=== PATIENT | female | born 1950 | race Caucasian/White ===

== ENCOUNTER 2017-06-23 14:24 | Inpatient (IN) | payer OTHER ==
[~2017-06-23] VITALS: Ht 177.8 cm; Wt 100.3 kg
--- NOTE | 2017-06-23 14:41 | ED GI/GU/ABDOMINAL COMPLAINT ---
History of Present Illness General Chief Complaint: Abdominal Pain/Flank Pain Stated Complaint: BIBA FOR FLANK PAIN Source: patient, family Exam Limitations: no limitations Allergies Coded Allergies: NO KNOWN ALLERGIES (12/08/15) Reconcile Medications Biotin 5,000 MCG TAB.SUBL 1 TAB PO DAILY SUPPLEMENT (Reported) Cholecalciferol (Vitamin D3) (Vitamin D3) 10,000 UNIT TABLET 1 TAB PO DAILY VITAMIN SUPPORT (Reported) Cyanocobalamin (Vitamin B-12) (Vitamin B-12) 1,000 MCG TAB.SUBL 1 TAB PO DAILY VITAMIN SUPPORT (Reported) Gabapentin 400 MG CAPSULE 1 CAP PO TID PAIN (Reported) Lactobacillus Combo No.10 (Probiotic) 20 BILLION CELL CAPSULE 1 CAP PO DAILY GI (Reported) Lisinopril 10 MG TABLET 1 TAB PO DAILY HEART (Reported) Multivitamin (Daily Multiple Vitamin) 1 EACH TABLET 1 TAB PO DAILY VITAMIN SUPPORT (Reported) Vitamin A Palmitate (Vitamin A) 10,000 UNIT CAPSULE 1 CAP PO DAILY VITAMIN SUPPORT (Reported) Zolpidem Tartrate 10 MG TABLET 1 TAB PO QPM SLEEP (Reported) Triage Note: PT BIBA FROM HOME S/P 4 DAY HX OF PAIN ABOVE RIGHT HIP. AREA IS HARD AND VERY TENDER TO TOUCH. PAIN ALSO ACOMPANIED BY SOB. 2L ON FOR COMFORT. Triage Nurses Notes Reviewed? yes ? n Is pt currently ? No Onset: Gradual Duration: day(s): Timing: recent history Quality/Severity: moderate Severity Numbers: 8 Location: right flank Radiation: no radiation HPI: 66yo female with hx of HTN BIBA for abdominal x 4 days. Patient reports right flank pain which has been constant for 4 days described as 8/10, worse with pressure and certain movements. Patient has had no history of a similar pain in this location. Pain has no radiation. Patient states that she takes Ambien at night, this medication often causes her to have forgetfulness. Patient states that it is possible she could've fallen and not been aware of that. No other areas suspected of injury. LBM was 2 hours ago and vicente. Patient is tolerating PO however reports diminished appetite. Patient denies nausea, vomiting, diarrhea, conspitation, fevers, chills, urinary symptoms. (Staci HUANG,Savi Boggs) Vital Signs & Intake/Output Vital Signs & Intake/Output Vital Signs Date Time Temp Pulse Resp B/P B/P Pulse O2 O2 Flow FiO2 Mean Ox Delivery Rate 06/23 2014 98.0 90 20 158/72 97 Room Air 06/23 1759 98.5 85 20 180/84 97 Room Air 06/23 1523 Nasal 2.0L Cannula 06/23 1433 98.2 98 22 162/79 98 Nasal 2.0L Cannula (Sandra NEWTON,Jamin Glez) Past History Travel History Traveled to [place] past 21 day No Medical History Any Pertinent Medical History? see below for history Cardiovascular: hypertension Surgical History Surgical History: cholecystectomy, gastric bypass Psychosocial History Who do you live with Spouse Services at Home None What is your primary language Fijian Family History Hx Contributory? No (Savi Rosas) Review of Systems Review of Systems Constitutional: Reports: no symptoms. EENTM: Reports: no symptoms. Respiratory: Reports: no symptoms. Cardiovascular: Reports: no symptoms. GI: Reports: see HPI. Genitourinary: Reports: no symptoms. Musculoskeletal: Reports: no symptoms. Skin: Reports: no symptoms. Neurological/Psychological: Reports: no symptoms. Hematologic/Endocrine: Reports: no symptoms. Immunologic/Allergic: Reports: no symptoms. All Other Systems: Reviewed and Negative (Savi Rosas) Physical Exam Physical Exam General Appearance: well developed/nourished, no apparent distress, alert, awake Head: atraumatic, normal appearance Eyes: Bilateral: normal appearance. Ears, Nose, Throat, Mouth: hearing grossly normal Neck: normal inspection, supple, full range of motion Respiratory: normal breath sounds, no respiratory distress, lungs clear Cardiovascular: regular rate/rhythm Gastrointestinal: normal bowel sounds, right flank tenderness with area of focal firmness to abodmen, no skin changes Back: normal inspection, normal range of motion Extremities: normal range of motion Neurologic/Psych: awake, alert, oriented x 3 Skin: intact, normal color, warm/dry Core Measures ACS in differential dx? No Sepsis Present: No Sepsis Focused Exam Completed? No (Savi Rosas) Progress Differential Diagnosis: appendicitis, bowel obstruction, colon cancer, inflamm bowel dis, kidney stone, ovarian cyst, UTI/pyelo, abscess Diagnostic Imaging: Viewed by Me: CT Scan. Discussed w/RAD: CT Scan. Radiology Impression: PATIENT: DINORAH LÓPEZ PRESENT AGE: 66 PATIENT ACCOUNT NO: [id number] : 48 LOCATION: [facility] ORDERING PHYSICIAN: Savi HUANG SERVICE DATE: 06/23/177893 EXAM TYPE: CAT - CT ABD & PELVIS W IV CONTRAST EXAMINATION: CT ABDOMEN AND PELVIS WITH CONTRAST CLINICAL INFORMATION: Right flank tenderness and firmness. COMPARISON: None TECHNIQUE: Multidetector volumetric imaging was performed of the abdomen and pelvis following IV administration of 95 mL of Optiray 320 intravenous contrast. Sagittal and coronal reformatted images were obtained on the technologist's workstation. DLP: 1635.21 mGy-cm FINDINGS: LUNG BASES: There is a minimal dependent right pleural effusion. LIVER, GALLBLADDER, AND BILIARY TREE: Status post cholecystectomy with surgical clips at the gallbladder fossa. There is both intrahepatic and extrahepatic bile duct dilatation. The extrahepatic CBD measures 1.6 cm. The intrahepatic left biliary radicle is dilated. There is a 5 mm stone in the distal CBD proximal to the ampulla, coronal image 68. PANCREAS: The pancreas is atrophic. There is no inflammation of the pancreas. There is no pancreatic duct dilatation. SPLEEN: Unremarkable. ADRENAL GLANDS: Unremarkable. KIDNEYS AND URETERS: The kidneys are normal in size, shape, and attenuation. No hydronephrosis, hydroureter, or calculi seen. No perinephric stranding. BLADDER: Unremarkable. GASTROINTESTINAL TRACT: There is diverticulosis of the left colon. No diverticulitis. No acute change of the bowel. No bowel obstruction. No bowel wall thickening or edema. Moderate volume of stool in the colon. The appendix is normal. Patient has had prior gastric surgery, gastric bypass. Anastomosis of the stomach and small bowel are unremarkable. ABDOMINAL WALL: There is a complex fluid collection along the right flank. This extends from the posterior right upper lobe posterior to the right lobe of the liver at the diaphragm and extends caudally along the infrahepatic area and involves the right flank muscle. It appears to extend through the right flank muscle inferiorly to the ribs. This collection measures approximately 20 x 5 x 10 cm. This has septations within it and there is subtle edema around the collection particularly at the extension through the abdominal wall. There is a fat-containing umbilical hernia. LYMPH NODES: Normal. VASCULAR: Atherosclerotic vascular wall calcifications of the aorta and iliac arteries without aneurysm. PELVIC VISCERA: Uterus is absent. No adnexal abnormality. OSSEOUS STRUCTURES: Degenerative spondylosis of spine with multilevel bridging osteophytes and facet joint arthrosis and disc-height narrowing of thoracic and lumbar spine. There is degenerative change of the hip joints with joint narrowing and spurring of femoral head and acetabula, right worse than left. IMPRESSION: 1. Complex collection consistent with abscess along the right flank. 2. Status post cholecystectomy. Dilated bile ducts. A 5 mm calcified stone in the distal CBD. 3. Status post gastric bypass. 4. Diverticulosis of the colon. No acute change of the bowel. This critical result was discussed with Savi Small on 06/23/2017, 5:00 PM and it was ascertained that the content and urgency of the report was understood at the time of direct communication. DICTATED BY: Nilesh Pagan MD DATE/TIME DICTATED:1647 BINDER SELECTOR:JG DATE/TIME TRANSCRIBED:06/23/171647 CONFIDENTIAL, DO NOT COPY WITHOUT APPROPRIATE AUTHORIZATION. <Electronically signed in Other Vendor System> SIGNED BY: Nilesh Pagan MD 06/23/17 6777 Initial ED EKG: sinus rhythm @89bpm, nonspecific ST changes Prior EKG: unchanged (05/12/11) (Savi Rosas) Plan of Care: Orders Procedure Date/time Status Nothing by Mouth 06/24 B Active PROTHROMBIN TIME 06/24 06 Active CBC WITHOUT DIFFERENTIAL 06/24 06 Active Pathway - chart 06/23 2002 Active Patient Data 06/23 2002 Active Vital Signs 06/23 2002 Active Intake & Output 06/23 2002 Active PARTIAL THROMBOPLASTIN TIME 06/23 2002 Active LIPASE 06/23 2002 Active HEPATIC FUNCTION PANEL 06/23 2002 Active BASIC ELECTROLYTES PLUS BUN&CR 06/23 2002 Active Code Status 06/23 2002 Active OXYGEN SETUP (GEN) 06/24 1999 Active Saline Lock 06/24 1999 Active Admit to inpatient 06/24 1999 Active Vital Signs 06/24 1999 Active Activity/Ambulation 06/24 1999 Active Code Status 06/24 1999 Complete EKG 06/23 1903 Active BLOOD CULTURE 06/23 1716 Active C-REACTIVE PROTEIN 06/23 1450 Complete URINALYSIS 06/23 1440 Complete LIPASE 06/23 1439 Complete LACTIC ACID 06/23 1439 Complete HIGH SENSITIVITY CRP 06/23 1439 Complete COMPREHENSIVE METABOLIC PANEL 06/23 1439 Complete CBC WITHOUT DIFFERENTIAL 06/23 1439 Complete VTE Mechanical Prophylaxis 06/23 UNK Active Current Medications Sig/Gunner Start time Last Medication Dose Stop Time Status Admin Ampicillin Sodium/ 3,000 MG Q6 06/23 2359 UNVr Sulbactam Sodium (Unasyn) Sodium Chloride 100 ML (Normal Saline 0.9%) Heparin Sodium 5,000 UNIT Q8 06/23 2200 UNVr (Porcine) Pantoprazole Sodium 40 MG Q12 06/23 2100 UNVr (Protonix) Dextrose/Sodium 1,000 ML Q10H 06/23 2000 UNVr Chloride (D5W-1/2 Normal Saline 1000ML) Laboratory Tests 06/23/17 1739: Lactic Acid Cancelled 06/23/17 1720: Urinalysis LIGHT H, Urine Color YEL, Urine Clarity CLEAR, Urine pH 7.0, Ur Specific [place] <= 1.005, Urine Protein NEG, Urine Ketones 15 H, Urine Nitrite NEG, Urine Bilirubin NEG, Urine Urobilinogen 2.0 H, Ur Leukocyte Esterase TRACE H, Ur Microscopic SEDIMENT EXAMINED, Urine WBC 1-3 H, Ur Epithelial Cells FEW, Urine Bacteria FEW H, Urine Hemoglobin NEG, Urine Glucose NEG 06/23/17 1450: Anion Gap 14, Estimated GFR > 60, BUN/Creatinine Ratio 23.3, Glucose 156 H, Lactic Acid 1.1, Calcium 9.5, Total Bilirubin 0.7, AST 72 H, ALT 75 H, Alkaline Phosphatase 252 H, C-Reactive Prot, Quant > 9.0 H, C-React Prot High Sens > 15.0 H, Total Protein 6.6, Albumin 3.3 L, Globulin 3.3, Albumin/ Globulin Ratio 1.0 L, Lipase 21 L, CBC w Diff MAN DIFF ORDERED, RBC 4.03 L, MCV 88.7, MCH 28.8, MCHC 32.5 L, RDW 13.5, MPV 7.6, Gran % 92.9 H, Lymphocytes % 5.4 L, Monocytes % 1.6 L, Eosinophils % 0.1, Basophils % 0, Absolute Granulocytes 10.9 H, Segmented Neutrophils 89 H, Band Neutrophils 2, Absolute Lymphocytes 0.6 L, Lymphocytes 5 L, Monocytes 4, Absolute Monocytes 0.2, Absolute Eosinophils 0, Absolute Basophils 0, Platelet Estimate VERIFIED BY SMEAR, Anisocytosis 1+ Microbiology 06/23 1750 BLOOD: Blood Culture - RECD 06/23 1734 BLOOD: Blood Culture - RECD Spoke with radiology regarding this patient - 5mm stone in distal CBD large abscess posterior to liver invading into right flank muscle, 20cm long, cause is unknown. Small right pleural effusion. Spoke with Dr. Blakely regarding this patient and abnormal CT scan findings. Surgical PA present to evaluate the patient. Given abscess and CBD stone they recommend general medicine admission for GI consult and IR abscess drainage. Spoke with Dr. Welch - possible MRCP. only requires ERCP if patient developes cholangitis. Dr. Welch does not feel she has cholangitis at this time and feels she can remain here at [place]. He will consult the patient tomorrow unless she requires urgent consult later tonight. Hospitalist, Dr. Fam recommends general surgery admission and she will consult from hospitalist standpoint. (Staci HUANG,Savi Boggs) (Sandra NEWTON,Jamin Glez) Departure Departure Disposition: STILL A PATIENT Condition: Stable Clinical Impression Primary Impression: Abscess of flank Secondary Impressions: Abdominal pain Qualifiers: Abdominal location: unspecified location Qualified Code: R10.9 - Unspecified abdominal pain Common bile duct stone Referrals: Juan Antonio NEWTON,Chepe Jasso Departure Forms: Customer Survey General Discharge Information Admission Note Spoke With: Darrick Oscar DO Documentation of Exam: Documentation of any treatments & extenuating circumstances including Concerns Regarding Discharge (functional status, medication knowledge or non-compliance, living conditions, etc.) that warrant an admission rather than observation: [ Abdominal wall abscess requiring IR drainage, gallstone requiring GI consult, possible MRCP/ERCP, repeat labs, IV fluids, IV pain management, premature discharge medically unsafe] (Staci HUANG,Savi Boggs) PA/GILL TENDER Co-Sign Statement Statement: ED Attending supervision documentation- [x] I saw and evaluated the patient. I have also reviewed all the pertinent lab results and diagnostic results. I agree with the findings and the plan of care as documented in the PA's/GILL TENDER's documentation. Patient presents for evaluation of right flank and abdominal pain. Physical examination reveals tenderness over the right abdomen. [] I have reviewed the ED Record and agree with the PA's/GILL TENDER's documentation. [] Additions or exceptions (if any) to the PAs/GILL TENDER's note and plan are summarized below: [] (Sandra NEWTON,Jamin Glez)
[2017-06-23 14:58] LABS: ABSOLUTE BASOPHIL COUNT 0 /CUMM (0.0-0.2); ABSOLUTE EOSINOPHIL COUNT 0 /CUMM (0.0-0.7); ABSOLUTE GRANULOCYTE CT 10.9 /CUMM (1.4-6.5); ABSOLUTE LYMPH COUNT 0.6 /CUMM (1.2-3.4); ABSOLUTE MONOCYTE COUNT 0.2 /CUMM (0.10-0.60); BASOPHIL % 0 % (0.0-2.0); EOSINOPHIL % 0.1 % (0-5); GRANULOCYTE % 92.9 % (42.2-75.2); HEMATOCRIT 35.8 % (37-47); MEAN CORPUSCULAR HGB 28.8 PG (27.0-31.0); MEAN CORPUSCULAR HGB CONC 32.5 G/DL (33.0-37.0); MEAN CORPUSCULAR VOLUME 88.7 FL (81.0-99.0); MEAN PLATELET VOLUME 7.6 FL (7.4-10.4); PLATELET COUNT 484 /CUMM (130-400); RBC DISTRIBUTION WIDTH 13.5 % (11.5-14.5); RED BLOOD CELL CT 4.03 /CUMM (4.20-5.40); WHITE BLOOD CELL COUNT 11.7 /CUMM (4.8-10.8)
[2017-06-23] MEDS ORDERED: DAILY MULTIPLE1 EACH PO (15:04)
[2017-06-23] MEDS ORDERED: BIOTIN5000 MC1 PO (15:05)
[2017-06-23] MEDS ORDERED: VITAMIN A10000 UNI1 PO (15:06)
[2017-06-23] MEDS ORDERED: PROBIOTIC1 EAC2 PO (15:07)
[2017-06-23] MEDS ORDERED: VITAMIN D310000 UNIT PO (15:08)
[2017-06-23] MEDS ORDERED: LISINOPRIL10 M1 PO (15:09)
[2017-06-23] MEDS ORDERED: VITAMIN B-121000 MC2 PO (15:09)
[2017-06-23] MEDS ORDERED: ZOLPIDEM TARTRA10 M1 PO (15:10)
[2017-06-23] MEDS ORDERED: GABAPENTIN400 M2 PO (15:10)
--- NOTE | 2017-06-23 17:27 | CT SCAN REPORT ---
EXAMINATION: CT ABDOMEN AND PELVIS WITH CONTRAST CLINICAL INFORMATION: Right flank tenderness and firmness. COMPARISON: None TECHNIQUE: Multidetector volumetric imaging was performed of the abdomen and pelvis following IV administration of 95 mL of Optiray 320 intravenous contrast. Sagittal and coronal reformatted images were obtained on the technologist's workstation. DLP: 1635.21 mGy-cm FINDINGS: LUNG BASES: There is a minimal dependent right pleural effusion. LIVER, GALLBLADDER, AND BILIARY TREE: Status post cholecystectomy with surgical clips at the gallbladder fossa. There is both intrahepatic and extrahepatic bile duct dilatation. The extrahepatic CBD measures 1.6 cm. The intrahepatic left biliary radicle is dilated. There is a 5 mm stone in the distal CBD proximal to the ampulla, coronal image 68. PANCREAS: The pancreas is atrophic. There is no inflammation of the pancreas. There is no pancreatic duct dilatation. SPLEEN: Unremarkable. ADRENAL GLANDS: Unremarkable. KIDNEYS AND URETERS: The kidneys are normal in size, shape, and attenuation. No hydronephrosis, hydroureter, or calculi seen. No perinephric stranding. BLADDER: Unremarkable. GASTROINTESTINAL TRACT: There is diverticulosis of the left colon. No diverticulitis. No acute change of the bowel. No bowel obstruction. No bowel wall thickening or edema. Moderate volume of stool in the colon. The appendix is normal. Patient has had prior gastric surgery, gastric bypass. Anastomosis of the stomach and small bowel are unremarkable. ABDOMINAL WALL: There is a complex fluid collection along the right flank. This extends from the posterior right upper lobe posterior to the right lobe of the liver at the diaphragm and extends caudally along the infrahepatic area and involves the right flank muscle. It appears to extend through the right flank muscle inferiorly to the ribs. This collection measures approximately 20 x 5 x 10 cm. This has septations within it and there is subtle edema around the collection particularly at the extension through the abdominal wall. There is a fat-containing umbilical hernia. LYMPH NODES: Normal. VASCULAR: Atherosclerotic vascular wall calcifications of the aorta and iliac arteries without aneurysm. PELVIC VISCERA: Uterus is absent. No adnexal abnormality. OSSEOUS STRUCTURES: Degenerative spondylosis of spine with multilevel bridging osteophytes and facet joint arthrosis and disc-height narrowing of thoracic and lumbar spine. There is degenerative change of the hip joints with joint narrowing and spurring of femoral head and acetabula, right worse than left. IMPRESSION: 1. Complex collection consistent with abscess along the right flank. 2. Status post cholecystectomy. Dilated bile ducts. A 5 mm calcified stone in the distal CBD. 3. Status post gastric bypass. 4. Diverticulosis of the colon. No acute change of the bowel. This critical result was discussed with Savi Small on 06/23/2017, 5:00 PM and it was ascertained that the content and urgency of the report was understood at the time of direct communication.
--- NOTE | 2017-06-23 19:40 | RADIOLOGY REPORT ---
EXAMINATION: XR CHEST CLINICAL INFORMATION: Assess for pleuritic chest pain COMPARISON: Prior chest November 2015 TECHNIQUE: 2 views of the chest were obtained. FINDINGS: No acute significant abnormality is noted involving the heart, lungs, mediastinum, bony thorax or soft tissues. Spondylosis of the dorsal spine unchanged IMPRESSION: No acute disease. No effusion
--- NOTE | 2017-06-23 19:57 | Cons- General Surgery ---
Jess Wang 06/[birth year]/17 1944: General Information and HPI Consulting Request Date of Consult: 06/23/17 Requested By: ER STAFF Reason for Consult: RIGHT FLANK PAIN Source of Information: patient, family Exam Limitations: no limitations History of Present Illness: 66 year old female who presented to the emergency room with a 4 day history of right flank pain. Patient reports no history of trauma no prior history of kidney stones or hematuria. Patient states approximately 4 weeks ago she had a bladder infection and was seen by her primary care physician Dr. Romano who started her on a 5 day course of an unknown antibiotic. Her symptoms subsided and she was fine a week later she developed allergies and sinusitis with her persistent cough. Again she was prescribed antibiotics but did not take them. She did get better after a week. She still continued to cough and at that point she noticed she was developing right flank pain and tenderness. At that point she did not see any evidence of hematuria or discomfort with urinating. He described the pain today is consistent burning and stabbing in the right flank area. He did not see any rashes and she did not see and she does not have any history of trauma to the area. Her past medical history is significant for gastric bypass back in 2011 and she also underwent a laparoscopic cholecystectomy. He has a history of diverticulitis and multiple orthopedic procedures done in the past. Today she feels good except for the flank pain and denies any fevers or chills or generalized weakness. She was able to eat and drink today without nausea and her bowel movements have been normal. Urination has been asymptomatic. Allergies/Medications Allergies: Coded Allergies: NO KNOWN ALLERGIES (12/08/15) Home Med List: Biotin 5,000 MCG TAB.SUBL 1 TAB PO DAILY SUPPLEMENT (Reported) Cholecalciferol (Vitamin D3) (Vitamin D3) 10,000 UNIT TABLET 1 TAB PO DAILY VITAMIN SUPPORT (Reported) Cyanocobalamin (Vitamin B-12) (Vitamin B-12) 1,000 MCG TAB.SUBL 1 TAB PO DAILY VITAMIN SUPPORT (Reported) Gabapentin 400 MG CAPSULE 1 CAP PO TID PAIN (Reported) Lactobacillus Combo No.10 (Probiotic) 20 BILLION CELL CAPSULE 1 CAP PO DAILY GI (Reported) Lisinopril 10 MG TABLET 1 TAB PO DAILY HEART (Reported) Multivitamin (Daily Multiple Vitamin) 1 EACH TABLET 1 TAB PO DAILY VITAMIN SUPPORT (Reported) Vitamin A Palmitate (Vitamin A) 10,000 UNIT CAPSULE 1 CAP PO DAILY VITAMIN SUPPORT (Reported) Zolpidem Tartrate 10 MG TABLET 1 TAB PO QPM SLEEP (Reported) Current Medications: Current Medications Sig/Gunner Start time Last Medication Dose Route Stop Time Status Admin Ampicillin Sodium/ 0 .STK-MED ONE 06/23 1826 DC Sulbactam Sodium .ROUTE Ampicillin Sodium/ 3,000 MG ONCE ONE 06/23 1715 DC 06/23 Sulbactam Sodium IV 06/23 1744 1826 Sodium Chloride 100 ML Morphine Sulfate 0 .STK-MED ONE 06/23 175 DC .ROUTE Morphine Sulfate 2 MG ONCE ONE 06/23 1730 DC 06/23 IV 06/23 1731 1758 Sodium Chloride 1,000 ML BOLUS ONE 06/23 173 DC 06/23 IV 06/23 1829 1726 Past History Medical History Cardiovascular: hypertension Surgical History Pertinent Surgical History: arthroscopy (LEFT TOTAL KNEE REPLACEMENT), cholecystectomy, gastric bypass Psychosocial History Services at Home: None ETOH Use: occasional use Functional Ability ADLs Independent: dressing, eating, toileting, bathing. Ambulation: independent Review of Systems Review of Systems: Constitutional: No chills no fever no weakness HEENT: No blurred vision visual changes no throat pain nasal pain CV: denies chest pain edema orthopnea syncopal episode no peripheral edema Respiratory: No cough hemoptysis shortness of breath or wheeze GI: No abdominal pain bloating constipation or diarrhea or bloody stools no vomiting Right flank pain and palpable large mass Musculoskeletal: No neck pain back pain or joint swelling Skin: No recent acute changes in skin Neurological: No dizziness weakness or acute mental status changes Hematologic: no history of blood dyscrasia to include PE DVT or bleeding disorder No reported reaction to general anesthetics No recent fevers fluids or infections Exam & Diagnostic Data Vital Signs and I&O Vital Signs Date Time Temp Pulse Resp B/P B/P Pulse O2 O2 Flow FiO2 Mean Ox Delivery Rate 06/23 1758 98.5 85 20 180/84 97 Room Air 06/23 1523 Nasal 2.0L Cannula 06/23 143 98.2 98 22 162/79 98 Nasal 2.0L Cannula Intake & Output 06/23 1600 06/23 0800 06/23 0000 06/22 1600 06/22 0806/22 0000 Intake Total 0 Output Total Balance 0 Intake, Oral 0 Patient 245 lb Weight Weight Reported by Patient Measurement Method Physical Exam: When physical examination patient is alert and oriented answering questions appropriately laying in the stretcher. HEENT is within normal limits Neck is supple with active range of motion she has an old surgical scar from an ACDF Chest is clear to auscultation symmetric without rales rhonchi or wheeze Heart is regular rate and rhythm without murmurs rubs gallops Abdomen is obese rounded without distention no tenderness to help to palpation no [place] sign no epigastric pain She has a small umbilical hernia palpated that is nontender Section of the lumbar spine shows normal alignment and tenderness along the posterior lumbar paraspinals into the right flank area. There is a palpable bulge that is just inferior to her ribs that is nonmobile and fixed, it is tender to palpation nonfluctuant and there is no surrounding erythema. There is no cutaneous rash noted. Bilateral lower extremities are thin compared to her abdomen ARE soft bilaterally distal pulses are intact all extremities are warm Assessment/Plan Assessment/Plan Assessment and plan 66-year-old female with a painful right flank mass CAT scan reviewed today shows a large 20 x 10 possible fluid collection that is contained with surrounding edema along the right posterior flank area is incidental findings of a common bile duct stone. the common bile duct itself is 1.6 mm this stone is in the distal condom common bile duct proximal to the ampulla and its approximately [address]. CAT scan also reveals left colon diverticulosis and a small umbilical hernia that has contained fat. Her LFTs are elevated along with her alkaline phosphatase. She has an elevated CRP of 9. WBC count is 11.7 H&H is otherwise stable. Electrolytes are all within normal limits. Plan she will be admitted to surgical service and we will consult interventional radiology for drainage of fluid collection along the right flank area. This will be sent for culture sensitivity and fluid analysis. She is on Unasyn currently and has blood cultures pending. We will also consult GI due to her elevated LFTs and stone in the common bile duct. She will be nothing by mouth IV fluids protonIX and continue with Unasyn Heparin subcutaneous for DVT prophylaxis Consult Acknowledgment - Thank you for your consult request. Darrick Oscar DO 06/23/17 2145: Assessment/Plan Consult Acknowledgment - Thank you for your consult request. Attending MD Review Statement Attending Statement Attending MD Statement: examined this patient, discuss w/resident/PA/MOLD YARN SUPERVISOR, agreed w/resident/PA/MOLD YARN SUPERVISOR, discussed with family, reviewed EMR data (avail), reviewed images Attending Assessment/Plan: Patient seen and examined, agree with above. Right flank pain for ~4 days. Denies F/C. History above noted. Patient also reported falling not too long ago. AVSS. Abd-soft, obese. Right flank + palpable mass with surrounding erythema/ fluctuance. Labs elevated LFTs, Bili normal. CT scan - right flank fluid collection, CBD stone, biliary ductal dilatation, s/p LRYGB. Unclear etiology of the flank collection (?trauma, ?d/t CBD obstruction, clinically not an abscess but possible however no source), IV ABx, GI consult, may need a medical work-up, will need IR drainage of the collection to assess for content, repeat labs in AM , may need a Laparoscopic assisted ERCP. D/W patient and family at bedside.
[2017-06-23 22:05] LABS: PTT 26 SEC (25-37)
[2017-06-23 22:30] VITALS: BP 136/80
[2017-06-24 06:45] VITALS: BP 114/76; BP 126/74
[2017-06-24 08:36] LABS: PT 14.6 SEC (9.4-12.5)
--- NOTE | 2017-06-24 09:39 | Cons- Gastroenterology ---
General Information and HPI Consulting Request Date of Consult: 06/24/17 Requested By: Darrick Oscar DO Reason for Consult: I was called this morning to assess CBD stone. The consult was delayed, as when I came up to see the patient, she had already been brought down to IR for a diagnostic study. Source of Information: patient, family (pt's , Nilesh & dtr Heid), old records Exam Limitations: no limitations History of Present Illness: 66 y/o female, with numerous comorbidities, including morbid obesity, AODM, HTN, HLD, DJD, left TKR, right rotator cuff repair, C6/C7 spine surgery, post TAHBSO for endometrial Ca in 1982 (w/o adjuvant tx), followed by Dr. Romano for primary care & Dr. Boateng for GI in [place], [place]. 03/25/11: Lap CCKY w/o IOC & intraop liver bx per Dr. Neri- chronic cholecystitis & cirrhosis with mild steatohepatitis. Fe stains negative. (The pathology report recommended further w/u to exclude other causes of chronic hepatitis, such as viral, autoimmune and/or drug-induced, if clinically indicated). 05/25/11: GJ bypass (LRYGB), per Dr. Neri. The patient apparently was referred to Dr. Boateng for GI by Dr. Neri, after the 03/25/11: liver bx showed cirrhosis. The patient claimed she had EGD x [address] Boateng, last done approximately 2014, neither of them with varices. She stated she had a "benign polyp" removed by Dr. Boateng at her last colonoscopy of 2012, & was "due for one this year". The patient also said the CBD stone is chronic & "has been there for years", per Dr. Boateng. She denied any blood transfxs, IVDA, significant EtOH, or tattoos, regarding her cirrhosis. There was no FHx GI Ca, GI disease, or inherited liver disease. The patient presented to the [facility] 06/23/17 at 2:24 p.m., BIBA from home, with 4 days of burning, stabbing pain above the right hip/right flank, which was hard and tender to touch. The pain was accompanied by some mild shortness of breath, which then improved & her O2 sats were stable on RA. She denied any fevers or chills. She may have fallen a short while RN INFUSION, but was not certain. She denied any prior history of kidney stones or gross hematuria. She claimed approximately 1 month ago, she had a bladder infection and her PMD gave her a 5 day course of an unknown antibiotic. Her symptoms subsided then, but one week later, she developed symptoms of sinusitis and a persistent cough. She was again rx antibiotics by her PMD, but did not take them that time, and her symptoms subsided one week later. She denied any dysuria at the time of admission. She denied any rashes. She claimed she had a remote history of diverticulitis. She denied any vaginal spotting or D/C. Her bowel movements were normal. She denied any diarrhea, constipation, obstipation, tenesmus, change in stool caliber, BRBPR, or melena. She denied any nausea, vomiting, GERD, odynophagia, dysphagia, or early satiety. She denied any jaundice, dark urine, light stools, or pruritus. She claimed she has gotten forgetful in the past, attributed to Ambien , but denied any acute confusion. She denied any hip trauma. Upon arrival, BP 162/79, P 98, R 22, T 98.2, O2 sat 2L 98%. He was given IV Unasyn, IVF, & MS in the ER. BC were obtained. *The patient had a drain placed in her right flank by IR, just prior to my 06/24: GI consult, after which, her pain had resolved. The drain was putting out light chocolate colored liquid, most c/w probable abscess (*await dictated report of IR procedure note). She was comfortable & thirsty. 12/09/15: PMD- alb 4.4, glob 3.2, TBil 0.6, alk phos 81, AST 45, ALT 47, *Hep Bs Ag- neg, *Hep C Ab IgG- neg. 06/23/17: 1450- Admission labs- WBC 11.7 (89S/2B/5L/4M), H/H 11.6/35.8, MCV 88.7 , RDW 13.5, PLT 484, glu 156, BUN/Cr 14/0.6, GFR > 60, Na 138, K 4.4, HCO3 22, AG 14, lactate 1.1, lipase 21, Ca 9.5, alb 3.3, glob 3.3, TBil 0.7, alk phos 252 , AST 72, ALT 75, CRP > 9.0 06/23/17: 5- BUN/Cr 11/0.5, GFR > 60, Na 142, K 4.0, HCO3 24, AG 14, lipase 38, alb 3.4, glob 3.6, TBil 0.6, DBil 0.5, alk phos 256, AST 67, ALT 74 06/23/17: U/A- clear yellow, < 1.005, 7.0, 1-3 WBC, few bact, 15+ ket, 2.0 urobil, neg nitrite, tr esterase. 06/23/17: BC X 2- neg x 1 day. 06/24/17: *BF C&S- pending (*20 cc turbid fluid removed from right flank abscess ). 06/23/17: PTT 26 06/24/17: PT 14.6, INR 1.34. 06/23/17: EKG- NSR @ 89, nl axis, nl int, early transition, w/o ischemia. 06/23/17: CT ABD & PELVIS W IV CONTRAST- IMPRESSION: 1. Complex septated collection (20 x 5 x 10 cm), from right lobe of liver to right flank muscle, inferiorly to ribs, consistent with abscess along the right flank. 2. Status post cholecystectomy. Dilated IHD/EHD with CBD 1.6 cm. 5 mm calcified stone in the distal CBD. Atrophic pancreas. Normal spleen. 3. Status post gastric bypass. 4. Diverticulosis of the left colon. No acute change of the bowel. Normal AP. 5. Fat conatining umbilical hernia. 6. Minimal right pleural effusion. 7. ASHD A-I arteries, w/o aneurysm. 8. Uterus absent. 9. DJD T-L spine & hips B/L, R>L. This critical result was discussed with Savi Small on 06/23/2017, 5:00 PM and it was ascertained that the content and urgency of the report was understood at the time of direct communication. DICTATED BY: Nilesh Pagan MD DATE/TIME DICTATED:06/23/17 16406/23/17: XRY-CHEST XRAY, TWO VIEWS- No acute disease. No effusion. 06/24/17: US-GUIDANCE PROCEDURE NOTE: Informed consent was obtained from the patient prior to the procedure. During this process, the procedure and potential alternatives were explained along with the intended outcome and benefits. The risks of the procedure, including the possibility of an unsuccessful procedure, as well as the risk of not doing the procedure, were discussed. The patient was given the opportunity to ask questions regarding the procedure and appeared competent to make decisions. A signed consent form documenting this discussion was placed in the medical record. A time-out procedure was performed. TECHNIQUE: The patient was placed in the left side down decubitus position on the ultrasound table. A time-out was performed. The right abdomen was prepped and draped in the usual sterile fashion. 10 mL of 1% lidocaine was used to obtain local anesthesia of the skin and deeper tissues. A 22-gauge needle was advanced into the collection and fabrizio pus was aspirated. A 12 Cook Islander locking catheter was then advanced trocar style into the abscess under direct ultrasound guidance. The distal pigtail was formed. The catheter was secured to the skin with a single silk suture and a sterile dressing was placed over the site. The catheter was connected to gravity drainage bag. *80 mL of pus was aspirated and sent for the requested studies. The patient tolerated the procedure well. IMPRESSION: Successful ultrasound-guided abscess drainage. PLAN: 1. The patient was stable after the procedure and no complications were noted. 2. Drain to be flushed with 10 mL's normal saline twice daily. DICTATED BY: Stan Salas MD DATE/TIME DICTATED:06/24/174 Allergies/Medications Allergies: Coded Allergies: NO KNOWN ALLERGIES (12/08/15) Home Med List: Biotin 5,000 MCG TAB.SUBL 1 TAB PO DAILY SUPPLEMENT (Reported) Cholecalciferol (Vitamin D3) (Vitamin D3) 10,000 UNIT TABLET 1 TAB PO DAILY VITAMIN SUPPORT (Reported) Cyanocobalamin (Vitamin B-12) (Vitamin B-12) 1,000 MCG TAB.SUBL 1 TAB PO DAILY VITAMIN SUPPORT (Reported) Gabapentin 400 MG CAPSULE 1 CAP PO TID PAIN (Reported) Lactobacillus Combo No.10 (Probiotic) 20 BILLION CELL CAPSULE 1 CAP PO DAILY GI (Reported) Lisinopril 10 MG TABLET 1 TAB PO DAILY HEART (Reported) Multivitamin (Daily Multiple Vitamin) 1 EACH TABLET 1 TAB PO DAILY VITAMIN SUPPORT (Reported) Vitamin A Palmitate (Vitamin A) 10,000 UNIT CAPSULE 1 CAP PO DAILY VITAMIN SUPPORT (Reported) Zolpidem Tartrate 10 MG TABLET 1 TAB PO QPM SLEEP (Reported) Current Medications: Current Medications Sig/Gunner Start time Last Medication Dose Route Stop Time Status Admin Ampicillin Sodium/ 3,000 MG Q6 06/23 2359 AC 06/24 Sulbactam Sodium IV 1152 Sodium Chloride 100 ML Ampicillin Sodium/ 0 .STK-MED ONE 06/23 1826 DC Sulbactam Sodium .ROUTE Ampicillin Sodium/ 3,000 MG ONCE ONE 06/23 1715 DC 06/23 Sulbactam Sodium IV 06/23 1744 1826 Sodium Chloride 100 ML Dextrose/Sodium 1,000 ML Q10H 06/23 2000 AC 06/23 Chloride IV 2308 Fentanyl Citrate 0 .STK-MED ONE 06/24 0906 DC .ROUTE Gabapentin 400 MG Q8 06/23 2330 AC PO Heparin Sodium 5,000 UNIT Q8 06/23 2200 AC 06/24 (Porcine) SC 1450 Heparin Sodium 0 .STK-MED ONE 06/23 2122 DC (Porcine) .ROUTE Ketorolac 30 MG Q8P PRN 06/23 2200 AC 06/24 Tromethamine IV 06/28 2300 0755 Lidocaine 1 ML .STK-MED ONE 06/24 1107 DC ID 06/24 1108 Lisinopril 10 MG DAILY 06/24 0900 AC 06/24 PO 0810 Morphine Sulfate 2 MG Q4P PRN 06/24 0015 AC IV Morphine Sulfate 4 MG Q4 HRS NEEDED PRN 06/24 0015 AC 06/24 IV 1451 Morphine Sulfate 0 .STK-MED ONE 06/23 1758 DC .ROUTE Morphine Sulfate 2 MG ONCE ONE 06/23 1730 DC 06/23 IV 06/23 1731 1758 Ondansetron HCl 0 .STK-MED ONE 06/24 1030 DC .ROUTE Pantoprazole Sodium 0 .STK-MED ONE 06/23 2124 DC IV Pantoprazole Sodium 40 MG Q12 06/23 2100 AC 06/24 IV 0810 Patient Medication 1 ED ONE ONE 06/24 0945 DC 06/24 Teaching ED 06/24 0946 1158 Sodium Chloride 1,000 ML BOLUS ONE 06/23 1730 DC 06/23 IV 06/23 1664 8399 Past History Travel History Traveled to [place] past 21 day No Medical History Blood Transfusion Hx: No Neurological: residual from C spine surgery EENT: NONE Cardiovascular: hypertension, hyperlipidemia Respiratory: NONE Gastrointestinal: diverticulitis (remotely), umbilical hernia (reducible), GASTRIC BYPASS, hx colon polyps Hepatic: cirrhosis (by 03/25/11: introp liver bx), known distal CBD stone x yrs Renal: NONE Musculoskeletal: chronic neck pain, post C-spine surgery Psychiatric: NONE Endocrine: diabetes (AODM- ? 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 FATHER, , Age 63; Cause: Unknown cause of morbidity or mortality. Psychosocial History Where Do You Live? Home Who Do You Live With? spouse (Nilesh) Services at Home: None Primary Language: Setswana Smoking Status: Never Smoked ETOH Use: denies use (rare wine), occasional use Illicit Drug Use: denies illicit drug use Living Will? 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 no Other Social History: . Lives with Nilesh. 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 Functional Ability ADLs Independent: dressing, eating, toileting, bathing. Ambulation: independent IADLs Independent: shopping, housework, finances, food prep, telephone, transportation , medication admin. 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 Review of Systems Constitutional: Denies: chills, diaphoresis, fever, malaise, weakness, unexplained weight loss. EENTM: Denies: blurred vision, double vision, visual changes, eye pain, eye drainage, eye tearing, icterus, ear discharge, ear pain, ear redness, hearing changes, nasal congestion, epistaxis, nasal pain, throat pain, throat swelling, mouth pain, tooth pain. Cardiovascular: Denies: chest pain, edema, orthopena, palpitations, peripheral edema, syncope. Respiratory: Denies: cough, hemoptysis, orthopnea, short of breath, sputum production, stridor, wheezing. GI: Reports: abdominal pain (right flank- better post tube). Denies: bloating, constipation, diarrhea, distention, bowel incontinence, melena, nausea, bloody stool, changes in stool, vomiting, steatorrhea. Genitourinary: Denies: discharge, dysuria, frequency, hematuria, hesitation, nocturia, pain, urgency. Musculoskeletal: Reports: neck pain (chronic, post C6/C7 surgery). Denies: back pain, gout, joint pain, joint swelling, muscle pain, muscle stiffness. Skin: Denies: cysts, change in skin color, change in hair/nails, dryness, erythema, jaundice, lesions, lymphangitis, lumps, moles, rash. Neurological/Psychological: Denies: anxiety, ataxia, cognitive dysfunction, confusion, depressed, dementia, emotional problems, headache, numbness, paresthesia, pre-existing deficit, petit mal seizures, tingling, tremors, tonic-clonic seizures, unable to move lower ext , unable to move upper ext, weakness. Hematologic/Endocrine: Denies: bruising, bleeding, polyuria, polydipsia. Immunologic/Allergic: Denies: splenectomy, HIV/AIDS, lymphadenopathy. All Other Systems: Reviewed and Negative Exam & Diagnostic Data Vital Signs and I&O Vital Signs Date Time Temp Pulse Resp B/P B/P Pulse O2 O2 Flow FiO2 Mean Ox Delivery Rate 06/24 0810 98.3 84 18 114/76 06/24 0645 98.3 84 18 114 98 Room Air 06/23 2230 98.5 92 20 136/80 96 Room Air 06/23 2015 98.0 90 20 158/72 97 Room Air 06/23 1759 98.5 85 20 180/84 97 Room Air 06/23 1523 Nasal 2.0L Cannula 06/23 1433 98.2 98 22 162/79 98 Nasal 2.0L Cannula Intake & Output 06/24 040 Intake Total 750 0 Output Total Balance 750 0 Intake, IV 700 Intake, Oral 50 0 Patient 245 lb 245 lb 245 lb Weight Weight Reported by Patient Measurement Method Physical Exam: Well-developed, well-nourished, pleasant morbidly obese female, in no apparent distress. Sclera anicteric. Conjunctiva pink. Oropharynx clear. No oral thrush. No aphthous ulcers. There is no adenopathy, thyromegaly, or JVD. Post C- spine scar. No peripheral stigmata of inflammatory bowel disease or chronic liver disease on exam. No spiders on the anterior chest wall. No CVA tenderness. Breast & pelvic exams: API. Lungs: clear to A&P, with slight decreased BS at the right base. No wheezing, rales, or rhonchi. Heart exam: regular rate rhythm, S1 and S2, without any significant murmur. Abdominal exam: normal bowel sounds, soft obese belly, currently nontender (since right flank drainage tube placed by IR), without guarding or rebound. Reducible small umbillical hernia. Otherwise, no mass. No organomegaly. No fluid shift. No pulsatile mass. Digital rectal exam: deferred by patient. Extremities: without cyanosis or clubbing. Trace pedal edema B/L. Mod DJD. No rash. No palpable cords. *Right hip FROM & NT with int/ext rotation. No palmar erythema. No Dupuytren's contractures. Distal pulses 2+ bilaterally. DTRs 2+ bilaterally. Alert and oriented x 3. No tremor. No asterixis. A detailed exam for peripheral neuropathy was deferred. Results Pertinent Lab Results: Laboratory Tests 06/24 06/23 06/23 0738 2145 1739 Chemistry Sodium (137 - 145 mmol/L) 142 Potassium (3.5 - 5.1 mmol/L) 4.0 Chloride (98 - 107 mmol/L) 104 Carbon Dioxide (22 - 30 mmol/L) 24 Anion Gap (5 - 16) 14 BUN (7 - 17 mg/dL) 11 Creatinine (0.5 - 1.0 mg/dL) 0.5 Estimated GFR (>60 ml/min) > 60 BUN/Creatinine Ratio (7 - 25 %) 22.0 Lactic Acid Cancelled Total Bilirubin (0.2 - 1.3 mg/dL) 0.6 Direct Bilirubin (< 0.4 mg/dL) 0.5 H AST (14 - 36 U/L) 67 H ALT (9 - 52 U/L) 74 H Alkaline Phosphatase (<127 U/L) 256 H Total Protein (6.3 - 8.2 g/dL) 7.0 Albumin (3.5 - 5.0 g/dL) 3.4 L Lipase (23 - 300 U/L) 38 Coagulation PT (9.4 - 12.5 SEC) 14.6 H INR (0.90 - 1.19) 1.34 H APTT (25 - 37 SEC) 26 06/23 1720 Urines Urinalysis LIGHT H Urine Color (YEL,AMB,STR) YEL Urine Clarity (CLEAR) CLEAR Urine pH (5.0 - 8.0) 7.0 Ur Specific [place] (1.001 - 1.035) <= 1.005 Urine Protein (NEG,<30 MG/DL) NEG Urine Ketones (NEG) 15 H Urine Nitrite (NEG) NEG Urine Bilirubin (NEG) NEG Urine Urobilinogen (0.1 - 1.0 EU/dl) 2.0 H Ur Leukocyte Esterase (NEG) TRACE H Ur Microscopic SEDIMENT EXAMINED Urine WBC (0 - 2 /HPF) 1-3 H Ur Epithelial Cells (NONE,FEW) FEW Urine Bacteria (NEG/NONE) FEW H Urine Hemoglobin (NEG) NEG Urine Glucose (N MG/DL) NEG 06/23 1450 Chemistry Sodium (137 - 145 mmol/L) 138 Potassium (3.5 - 5.1 mmol/L) 4.4 Chloride (98 - 107 mmol/L) 101 Carbon Dioxide (22 - 30 mmol/L) 22 Anion Gap (5 - 16) 14 BUN (7 - 17 mg/dL) 14 Creatinine (0.5 - 1.0 mg/dL) 0.6 Estimated GFR (>60 ml/min) > 60 BUN/Creatinine Ratio (7 - 25 %) 23.3 Glucose (65 - 99 mg/dL) 156 H Lactic Acid (0.7 - 2.1 mmol/L) 1.1 Calcium (8.4 - 10.2 mg/dL) 9.5 Total Bilirubin (0.2 - 1.3 mg/dL) 0.7 AST (14 - 36 U/L) 72 H ALT (9 - 52 U/L) 75 H Alkaline Phosphatase (<127 U/L) 252 H C-Reactive Prot, Quant (<1.0 mg/dL) > 9.0 H C-React Prot High Sens (1.0 - 3.0 mg/L) > 15.0 H Total Protein (6.3 - 8.2 g/dL) 6.6 Albumin (3.5 - 5.0 g/dL) 3.3 L Globulin (1.9 - 4.2 gm/dL) 3.3 Albumin/Globulin Ratio (1.1 - 2.2 %) 1.0 L Lipase (23 - 300 U/L) 21 L Hematology CBC w Diff MAN DIFF ORDERED WBC (4.8 - 10.8 /CUMM) 11.7 H RBC (4.20 - 5.40 /CUMM) 4.03 L Hgb (12.0 - 16.0 G/DL) 11.6 L Hct (37 - 47 %) 35.8 L MCV (81.0 - 99.0 FL) 88.7 MCH (27.0 - 31.0 PG) 28.8 MCHC (33.0 - 37.0 G/DL) 32.5 L RDW (11.5 - 14.5 %) 13.5 Plt Count (130 - 400 /CUMM) 484 H MPV (7.4 - 10.4 FL) 7.6 Gran % (42.2 - 75.2 %) 92.9 H Lymphocytes % (20.5 - 51.1 %) 5.4 L Monocytes % (1.7 - 9.3 %) 1.6 L Eosinophils % (0 - 5 %) 0.1 Basophils % (0.0 - 2.0 %) 0 Absolute Granulocytes (1.4 - 6.5 /CUMM) 10.9 H Segmented Neutrophils (42.2 - 75.2 %) 89 H Band Neutrophils (0.0 - 5.0 %) 2 Absolute Lymphocytes (1.2 - 3.4 /CUMM) 0.6 L Lymphocytes (20.5 - 51.1 %) 5 L Monocytes (1.7 - 9.3 %) 4 Absolute Monocytes (0.10 - 0.60 /CUMM) 0.2 Absolute Eosinophils (0.0 - 0.7 /CUMM) 0 Absolute Basophils (0.0 - 0.2 /CUMM) 0 Platelet Estimate (ADEQUATE) VERIFIED BY SMEAR Anisocytosis 1+ Imaging/Other Studies: 06/23/17: EKG- NSR @ 89, nl axis, nl int, early transition, w/o ischemia. 06/23/17: CT ABD & PELVIS W IV CONTRAST- IMPRESSION: 1. Complex septated collection (20 x 5 x 10 cm), from right lobe of liver to right flank muscle, inferiorly to ribs, consistent with abscess along the right flank. 2. Status post cholecystectomy. Dilated IHD/EHD with CBD 1.6 cm. 5 mm calcified stone in the distal CBD. Atrophic pancreas. Normal spleen. 3. Status post gastric bypass. 4. Diverticulosis of the left colon. No acute change of the bowel. Normal AP. 5. Fat conatining umbilical hernia. 6. Minimal right pleural effusion. 7. ASHD A-I arteries, w/o aneurysm. 8. Uterus absent. 9. DJD T-L spine & hips B/L, R>L. This critical result was discussed with Savi Small on 06/23/2017, 5:00 PM and it was ascertained that the content and urgency of the report was understood at the time of direct communication. DICTATED BY: Nilesh Pagan MD DATE/TIME DICTATED:06/23/17164706/23/17: XRY-CHEST XRAY, TWO VIEWS- No acute disease. No effusion. 06/24/17: US-GUIDANCE PROCEDURE NOTE: Informed consent was obtained from the patient prior to the procedure. During this process, the procedure and potential alternatives were explained along with the intended outcome and benefits. The risks of the procedure, including the possibility of an unsuccessful procedure, as well as the risk of not doing the procedure, were discussed. The patient was given the opportunity to ask questions regarding the procedure and appeared competent to make decisions. A signed consent form documenting this discussion was placed in the medical record. A time-out procedure was performed. TECHNIQUE: The patient was placed in the left side down decubitus position on the ultrasound table. A time-out was performed. The right abdomen was prepped and draped in the usual sterile fashion. 10 mL of 1% lidocaine was used to obtain local anesthesia of the skin and deeper tissues. A 22-gauge needle was advanced into the collection and fabrizio pus was aspirated. A 12 [place] Islander locking catheter was then advanced trocar style into the abscess under direct ultrasound guidance. The distal pigtail was formed. The catheter was secured to the skin with a single silk suture and a sterile dressing was placed over the site. The catheter was connected to gravity drainage bag. *80 mL of pus was aspirated and sent for the requested studies. The patient tolerated the procedure well. IMPRESSION: Successful ultrasound-guided abscess drainage. PLAN: 1. The patient was stable after the procedure and no complications were noted. 2. Drain to be flushed with 10 mL's normal saline twice daily. DICTATED BY: Stan Salas MD DATE/TIME DICTATED:06/24/171443 Assessment/Plan Assessment/Recommendations: 66 y/o female, with numerous comorbidities, including morbid obesity, AODM, HTN, HLD, DJD, left TKR, right rotator cuff repair, C6/C7 spine surgery, post TAHBSO for endometrial Ca in 1982 (w/o adjuvant tx), followed by Dr. Romano for primary care & Dr. Boateng for GI in [place], [place]. 03/25/11: Lap CCKY w/o IOC & intraop liver bx per Dr. Neri- chronic cholecystitis & cirrhosis with mild steatohepatitis. Fe stains negative. (The pathology report recommended further w/u to exclude other causes of chronic hepatitis, such as viral, autoimmune and/or drug-induced, if clinically indicated). 05/25/11: GJ bypass (LRYGB), per Dr. Neri. The patient apparently was referred to Dr. Boateng for GI by Dr. Neri, after the 03/25/11: liver bx showed cirrhosis. The patient claimed she had EGD x [address] Boateng, last done approximately 2014, neither of them with varices. She stated she had a "benign polyp" removed by Dr. Boateng at her last colonoscopy of 2012, & was "due for one this year". The patient also said the CBD stone is chronic & "has been there for years", per Dr. Boateng. She denied any blood transfxs, IVDA, significant EtOH, or tattoos, regarding her cirrhosis. There was no FHx GI Ca, GI disease, or inherited liver disease. The patient presented to the [facility] 06/23/17 at 2:24 p.m., BIBA from home, with 4 days of burning, stabbing pain above the right hip/right flank, which was hard and tender to touch. The pain was accompanied by some mild shortness of breath, which then improved & her O2 sats were stable on RA. She denied any fevers or chills. She may have fallen a short while RN INFUSION, but was not certain. She denied any prior history of kidney stones or gross hematuria. She claimed approximately 1 month ago, she had a bladder infection and her PMD gave her a 5 day course of an unknown antibiotic. Her symptoms subsided then, but one week later, she developed symptoms of sinusitis and a persistent cough. She was again rx antibiotics by her PMD, but did not take them that time, and her symptoms subsided one week later. She denied any dysuria at the time of admission. She denied any rashes. She claimed she had a remote history of diverticulitis. She denied any vaginal spotting or D/C. Her bowel movements were normal. She denied any diarrhea, constipation, obstipation, tenesmus, change in stool caliber, BRBPR, or melena. She denied any nausea, vomiting, GERD, odynophagia, dysphagia, or early satiety. She denied any jaundice, dark urine, light stools, or pruritus. She claimed she has gotten forgetful in the past, attributed to Ambien , but denied any acute confusion. She denied any hip trauma. Upon arrival, BP 162/79, P 98, R 22, T 98.2, O2 sat 2L 98%. He was given IV Unasyn, IVF, & MS in the ER. BC were obtained. *The patient had a drain placed in her right flank by IR, just prior to my 06/24: GI consult, after which, her pain had resolved. The drain was putting out light chocolate colored liquid, most c/w probable abscess (*await dictated report of IR procedure note). She was comfortable & thirsty. 12/09/15: PMD- alb 4.4, glob 3.2, TBil 0.6, alk phos 81, AST 45, ALT 47, *Hep Bs Ag- neg, *Hep C Ab IgG- neg. 06/23/17: 1450- Admission labs- WBC 11.7 (89S/2B/5L/4M), H/H 11.6/35.8, MCV 88.7 , RDW 13.5, PLT 484, glu 156, BUN/Cr 14/0.6, GFR > 60, Na 138, K 4.4, HCO3 22, AG 14, lactate 1.1, lipase 21, Ca 9.5, alb 3.3, glob 3.3, TBil 0.7, alk phos 252 , AST 72, ALT 75, CRP > 9.0 06/23/17: 2145- BUN/Cr 11/0.5, GFR > 60, Na 142, K 4.0, HCO3 24, AG 14, lipase 38, alb 3.4, glob 3.6, TBil 0.6, DBil 0.5, alk phos 256, AST 67, ALT 74 06/23/17: U/A- clear yellow, < 1.005, 7.0, 1-3 WBC, few bact, 15+ ket, 2.0 urobil, neg nitrite, tr esterase. 06/23/17: BC X 2- neg x 1 day. 06/24/17: *BF C&S- pending (*20 cc turbid fluid removed from right flank abscess ). 06/23/17: PTT 26 06/24/17: PT 14.6, INR 1.34. 06/23/17: EKG- NSR @ 89, nl axis, nl int, early transition, w/o ischemia. 06/23/17: CT ABD & PELVIS W IV CONTRAST- IMPRESSION: 1. Complex septated collection (20 x 5 x 10 cm), from right lobe of liver to right flank muscle, inferiorly to ribs, consistent with abscess along the right flank. 2. Status post cholecystectomy. Dilated IHD/EHD with CBD 1.6 cm. 5 mm calcified stone in the distal CBD. Atrophic pancreas. Normal spleen. 3. Status post gastric bypass. 4. Diverticulosis of the left colon. No acute change of the bowel. Normal AP. 5. Fat conatining umbilical hernia. 6. Minimal right pleural effusion. 7. ASHD A-I arteries, w/o aneurysm. 8. Uterus absent. 9. DJD T-L spine & hips B/L, R>L. This critical result was discussed with Savi Small on 06/23/2017, 5:00 PM and it was ascertained that the content and urgency of the report was understood at the time of direct communication. DICTATED BY: Nilesh Pagan MD DATE/TIME DICTATED:06/23/17 1648 06/23/17: XRY-CHEST XRAY, TWO VIEWS- No acute disease. No effusion. 06/24/17: US-GUIDANCE PROCEDURE NOTE: Informed consent was obtained from the patient prior to the procedure. During this process, the procedure and potential alternatives were explained along with the intended outcome and benefits. The risks of the procedure, including the possibility of an unsuccessful procedure, as well as the risk of not doing the procedure, were discussed. The patient was given the opportunity to ask questions regarding the procedure and appeared competent to make decisions. A signed consent form documenting this discussion was placed in the medical record. A time-out procedure was performed. TECHNIQUE: The patient was placed in the left side down decubitus position on the ultrasound table. A time-out was performed. The right abdomen was prepped and draped in the usual sterile fashion. 10 mL of 1% lidocaine was used to obtain local anesthesia of the skin and deeper tissues. A 22-gauge needle was advanced into the collection and fabrizio pus was aspirated. A 12 [place] Island[place] locking catheter was then advanced trocar style into the abscess under direct ultrasound guidance. The distal pigtail was formed. The catheter was secured to the skin with a single silk suture and a sterile dressing was placed over the site. The catheter was connected to gravity drainage bag. *80 mL of pus was aspirated and sent for the requested studies. The patient tolerated the procedure well. IMPRESSION: Successful ultrasound-guided abscess drainage. PLAN: 1. The patient was stable after the procedure and no complications were noted. 2. Drain to be flushed with 10 mL's normal saline twice daily. DICTATED BY: Stan Salas MD DATE/TIME DICTATED:06/24/17 1444 *As of 06/24/17, I felt that the patient's chronic CBD stone (apparently dates back years), was incidental in nature and may have nothing to do with the patient's right flank abscess. Clinically, she did not have cholangitis. I was not certain as to what the exact etiology of the right flank abscess was (? urologic, ? GI > biliary). There was a questionable history of trauma. The history of cirrhosis was noted, & most likely was from meatabolic syndrome X. The patient has numerous risk factors for steatohepatitis-> cirrhosis, including morbid obesity, HTN, AODM, HLD, etc. There was no significant hx EtOH, nor any significant FHx. Her current LFTs could be reactive in nature from adjacent liver inflammation, from the right flank abscess. She had nothing clinically, nor radiographically, to suggest recurrent diverticulitis. The fact that she had GJ bypass (LRYGB) makes ERCP technically difficult, & would require laparoscopic assisted ERCP. Her reducible umbilical hernia is incidental in nature. *SUGGEST- Clears po & advance diet as tolerated. IV Unasyn 3g IVPB Q6h. Follow-up BC. Check urine C&S. Consider ID consult. If not obtained at Dr. Boateng, consideration for semi- electively checking full Hep A, B, & C serologies, HIV, Fe, TIBC, ferritin, DELILAH, AMA, & A1AT. Serial LFTs. DVT prophylaxis. *Await dictated report of 06/24/17: IR drainage procedure. *Duration of right flank drainage tube will be dependent on output, clinical course, & eventual follow-up imaging studies, to be coordinated by surgery & IR. Assuming the patient continues to improve, I anticipate outpatient coordinated lap assisted ERCP, which will require temporarilly creating a gastric port, in order to proceed. If clinically indicated, can always arrange for inpatient lap assisted ERCP. I do not perform interventional ERCP. The case was discussed with the patient, her , Nilesh , & her daughter Soraya, on 06/24/17, as well as with Dr. Oscar & Dr. Cheikh Flores. Assuming this is done as an outpatient, the patient will decide on whether she wants the lap assisted ERCP done here, or by her usual GI group in [place]. The patient is apparently due for f/u surveillance colonoscopy later in [address] Boateng, regarding her hx colon polyps. (EGD there have reportedly been negative for varices). Will defer to Dr. Boateng, regarding hepatoma surveillance, with AFP/RUQ sono Q 6 months, vaccinations, etc. Avoid hepatotoxins, avoid NSAIDs (*on inpt Ketorolac prn), & keep Tylenol use to a minimum. The patient was given our office number. *Please give Vit K 10 mg sc x 1 & repeat PT with INR. Further GI recommendations to follow, depending on clinical course. Problem List: 1. Abscess of flank 2. Common bile duct stone 3. Cirrhosis 4. Abnormal LFTs 5. Aram-en-Y gastrojejunostomy 6. Diverticula of colon 7. Umbilical hernia without obstruction and without gangrene 8. History of colon polyps Copies To: Darrick Oscar DO; Tasneem NEWTON,Chely Romano MD,Chepe Aragon. Consult Acknowledgment - Thank you for your consult request.
[2017-06-24 13:57] VITALS: BP 158/84
--- NOTE | 2017-06-24 14:52 | ULTRASOUND REPORT ---
CLINICAL HISTORY: DINORAH LÓPEZ is a66 years old Female who presents to interventional radiology for drain placement into right flank abscess. PROCEDURES: 1. Ultrasound-guided drain placement right flank abscess. REFERRING PROVIDER: Ramona Parekh MD COMPLICATIONS: None. ESTIMATED BLOOD LOSS: <5 mL. SPECIMENS: Culture. PROCEDURE NOTE: Informed consent was obtained from the patient prior to the procedure. During this process, the procedure and potential alternatives were explained along with the intended outcome and benefits. The risks of the procedure, including the possibility of an unsuccessful procedure, as well as the risk of not doing the procedure, were discussed. The patient was given the opportunity to ask questions regarding the procedure and appeared competent to make decisions. A signed consent form documenting this discussion was placed in the medical record. A time-out procedure was performed. TECHNIQUE: The patient was placed in the left side down decubitus position on the ultrasound table. A time-out was performed. The right abdomen was prepped and draped in the usual sterile fashion. 10 mL of 1% lidocaine was used to obtain local anesthesia of the skin and deeper tissues. A 22-gauge needle was advanced into the collection and fabrizio pus was aspirated. A 12 [place] locking catheter was then advanced trocar style into the abscess under direct ultrasound guidance. The distal pigtail was formed. The catheter was secured to the skin with a single silk suture and a sterile dressing was placed over the site. The catheter was connected to gravity drainage bag. 80 mL of pus was aspirated and sent for the requested studies. The patient tolerated the procedure well. IMPRESSION: Successful ultrasound-guided abscess drainage. PLAN: 1. The patient was stable after the procedure and no complications were noted. 2. Drain to be flushed with 10 mL's normal saline twice daily.
--- NOTE | 2017-06-24 16:04 | PN- General Surgery ---
Surgical Brief Attending Note Brief Attending Note: pt seen for Dr Oscar this afternoon pt stable and draining thin cly colored purulent liquid from IR drainage catheter ID consult appreciated Abdomen soft and nontender no evidence of skin cellulitis or redness
--- NOTE | 2017-06-24 16:22 | Cons- Infect Disease ---
General Information and HPI Consulting Request Date of Consult: 06/24/17 Requested By: Darrick Oscar DO Reason for Consult: Right flank abscess Source of Information: patient, family, old records History of Present Illness: This is a 66-year-old woman with a history of hypertension, diabetes, osteoarthritis, status post left knee replacement, endometrial cancer, status post hysterectomy, cholelithiasis, status post laparoscopic cholecystectomy over 6 years prior to admission, with a liver biopsy at that time revealing cirrhosis with mild steatohepatitis, status post laparoscopic Aram-en-Y gastric bypass several months later, treated for a urinary tract infection 1 month prior to admission, with congestion/cough 10 days prior to admission, which resolved on its own, admitted on June 23 with a 4 day history of right flank burning pain associated with anorexia, decreased p.o. intake and an episode of chills without nausea, vomiting, abdominal pain, change in her bowels, urinary symptoms or fever. On admission she was afebrile. Laboratory data revealed a white blood cell count of 12,000, BUN/creatinine 14 and 0.6, alkaline phosphatase 252, AST/ ALT 72 and 75. Urinalysis 1-3 WBCs. Chest x-ray was negative. CT of the abdomen and pelvis with IV contrast revealed a complex fluid collection along the right flank, extending from the right lobe of the liver, through the right flank muscle inferiorly to the ribs, measuring 20 x 5 x 10 cm, with septations within it and with subtle edema around the collection through the abdominal wall ; intrahepatic and extra hepatic biliary ductal dilatation, with a 5 mm stone in the distal common bile duct; diverticulosis. She was begun on Unasyn and has remained afebrile overnight. This afternoon she underwent drainage of the right flank collection, with removal of 80 cc of pus, and with a catheter left in place. At present she feels comfortable with no complaints. Allergies/Medications Allergies: Coded Allergies: NO KNOWN ALLERGIES (12/08/15) Home Med List: Biotin 5,000 MCG TAB.SUBL 1 TAB PO DAILY SUPPLEMENT (Reported) Cholecalciferol (Vitamin D3) (Vitamin D3) 10,000 UNIT TABLET 1 TAB PO DAILY VITAMIN SUPPORT (Reported) Cyanocobalamin (Vitamin B-12) (Vitamin B-12) 1,000 MCG TAB.SUBL 1 TAB PO DAILY VITAMIN SUPPORT (Reported) Gabapentin 400 MG CAPSULE 1 CAP PO TID PAIN (Reported) Lactobacillus Combo No.10 (Probiotic) 20 BILLION CELL CAPSULE 1 CAP PO DAILY GI (Reported) Lisinopril 10 MG TABLET 1 TAB PO DAILY HEART (Reported) Multivitamin (Daily Multiple Vitamin) 1 EACH TABLET 1 TAB PO DAILY VITAMIN SUPPORT (Reported) Vitamin A Palmitate (Vitamin A) 10,000 UNIT CAPSULE 1 CAP PO DAILY VITAMIN SUPPORT (Reported) Zolpidem Tartrate 10 MG TABLET 1 TAB PO QPM SLEEP (Reported) Past History Travel History Traveled to [place] past 21 day No Medical History Blood Transfusion Hx: No EENT: NONE Cardiovascular: hypertension Respiratory: NONE Hepatic: cholelithiasis, cirrhosis Renal: NONE Musculoskeletal: osteoarthritis Psychiatric: NONE Endocrine: NONE Blood Disorders: NONE Cancer(s): endometrial cancer History of MRSA: No History of VRE: No History of CDIFF: No Isolation History: Standard Surgical History Surgical History: arthroscopy (LEFT TOTAL KNEE REPLACEMENT), cholecystectomy, hysterectomy, knee replacement (left), gastric bypass Family History Relations & Conditions If Any: MOTHER, , Age 92; Cause: Old age. FATHER, , Age 63; Cause: Unknown cause of morbidity or mortality. Psychosocial History Where Do You Live? Home Services at Home: None Smoking Status: Never Smoked ETOH Use: occasional use Functional Ability ADLs Independent: dressing, eating, toileting, bathing. Ambulation: independent ECHO Results (as available) Date of last Echo 12/11/15 EF% 60 Review of Systems Review of Systems Constitutional: Denies: fever. Cardiovascular: Denies: chest pain. Respiratory: Denies: cough, short of breath. GI: Denies: abdominal pain, nausea, changes in stool, vomiting. Genitourinary: Reports: no symptoms. All Other Systems: Reviewed and Negative Exam & Diagnostic Data Last 24 Hrs of Vital Signs/I&O Vital Signs Date Time Temp Pulse Resp B/P B/P Pulse O2 O2 Flow FiO2 Mean Ox Delivery Rate 06/24 1357 98.9 83 20 158/84 97 Room Air 06/24 0810 98.3 84 18 114/76 06/24 0645 98.3 84 18 114/76 98 Room Air 06/23 2230 98.5 92 20 136/80 96 Room Air 06/23 2014 98.0 90 20 158/72 97 Room Air 06/23 1759 98.5 85 20 180/84 97 Room Air Intake & Output 06/24 1600 06/24 0800 06/24 0000 Intake Total 700 750 Output Total Balance 700 750 Intake, IV 700 700 Intake, Oral 50 Patient 245 lb 245 lb Weight Physical Exam Other Physical Findings: She is awake and alert in no acute distress. She is afebrile. Skin reveals no rash. HEENT exam is negative. Neck is supple with no adenopathy. Lungs are clear. Heart regular rhythm with no murmur. Abdomen is obese, soft, nontender with positive bowel sounds. Back right flank pigtail catheter in place, with brown, purulent fluid in the bag; no flank erythema, induration or tenderness. Extremities no cyanosis, clubbing or edema. Neuro is without focality. Last 24 Hours of Lab Results: Laboratory Tests 06/24 06/23 06/23 0738 2145 1739 Chemistry Sodium (137 - 145 mmol/L) 142 Potassium (3.5 - 5.1 mmol/L) 4.0 Chloride (98 - 107 mmol/L) 104 Carbon Dioxide (22 - 30 mmol/L) 24 Anion Gap (5 - 16) 14 BUN (7 - 17 mg/dL) 11 Creatinine (0.5 - 1.0 mg/dL) 0.5 Estimated GFR (>60 ml/min) > 60 BUN/Creatinine Ratio (7 - 25 %) 22.0 Lactic Acid Cancelled Total Bilirubin (0.2 - 1.3 mg/dL) 0.6 Direct Bilirubin (< 0.4 mg/dL) 0.5 H AST (14 - 36 U/L) 67 H ALT (9 - 52 U/L) 74 H Alkaline Phosphatase (<127 U/L) 256 H Total Protein (6.3 - 8.2 g/dL) 7.0 Albumin (3.5 - 5.0 g/dL) 3.4 L Lipase (23 - 300 U/L) 38 Coagulation PT (9.4 - 12.5 SEC) 14.6 H INR (0.90 - 1.19) 1.34 H APTT (25 - 37 SEC) 06/23 1720 Urines Urinalysis LIGHT H Urine Color (YEL,AMB,STR) YEL Urine Clarity (CLEAR) CLEAR Urine pH (5.0 - 8.0) 7.0 Ur Specific [place] (1.001 - 1.035) <= 1.005 Urine Protein (NEG,<30 MG/DL) NEG Urine Ketones (NEG) 15 H Urine Nitrite (NEG) NEG Urine Bilirubin (NEG) NEG Urine Urobilinogen (0.1 - 1.0 EU/dl) 2.0 H Ur Leukocyte Esterase (NEG) TRACE H Ur Microscopic SEDIMENT EXAMINED Urine WBC (0 - 2 /HPF) 1-3 H Ur Epithelial Cells (NONE,FEW) FEW Urine Bacteria (NEG/NONE) FEW H Urine Hemoglobin (NEG) NEG Urine Glucose (N MG/DL) NEG Last 24 Hours of [place] Results: Blood cultures 2 June 23 negative Right flank abscess culture June 24 pending, with gram stain revealing many white blood cells and many gram-positive rods Diagnostic Data Recent Imaging Findings: Chest x-ray June [address] of the abdomen and pelvis with IV contrast June 23 revealed a complex fluid collection along the right flank, extending from the right lobe of the liver, through the right flank muscle inferiorly to the ribs, measuring 20 x 5 x 10 cm, with septations within it and with subtle edema around the collection through the abdominal wall; intrahepatic and extra hepatic biliary ductal dilatation, with a 5 mm stone in the distal common bile duct; diverticulosis. Assessment/Plan Assessment/Plan Impression: This is a 66-year-old woman status post laparoscopic cholecystectomy and gastric bypass over 6 years prior to admission, with a liver biopsy at that time revealing cirrhosis, admitted on June 23 with a 4 day history of right flank pain , associated with anorexia, decreased p.o. intake and an episode of chills, found to be afebrile with a mild leukocytosis and with a CT of the abdomen and pelvis revealing a complex fluid collection along the right flank, now status post drainage of purulent fluid, with the gram stain of the fluid revealing many white blood cells and many gram-positive rods. The etiology of the right flank abscess is unclear. Given the presence of choledocholithiasis and elevated liver enzymes I suspect she has a low-grade cholangitis and that, at some point, she sustained a perforation of the biliary tree, resulting in this collection, which appears to be tracking through the muscle. This could also be secondary to another GI process, such as diverticulitis, though the CT scan does not suggest any evidence for this. Her history of cirrhosis is of interest but is of unclear relevance to her current problem. The gram stain, revealing gram-positive rods, is suggestive of Clostridium, which would support a biliary or upper GI process. She is currently on Unasyn, which can be continued pending final cultures. In addition to ensuring adequate drainage she will require further evaluation and management of the choledocholithiasis, which, as discussed with GI, would require a laparoscopic assisted ERCP. Suggestion: 1. Follow-up culture of the right flank abscess 2. Ensure that the pigtail catheter is flushed every shift 3. Further evaluation and management of the choledocholithiasis per GI and Surgery 4. Continue Unasyn pending above Dr. Muñoz will be covering over the weekend Consult Acknowledgment - Thank you for your consult request.
[2017-06-24 21:50] VITALS: BP 140/70
[2017-06-25 01:30] VITALS: BP 122/84
[2017-06-25 03:30] VITALS: BP 130/80
[2017-06-25 08:14] VITALS: BP 110/80
[2017-06-25 08:56] LABS: PT 13.8 SEC (9.4-12.5)
--- NOTE | 2017-06-25 11:01 | PN- General Surgery ---
Subjective Subjective: Patient seen and evaluated. No acute events overnihgt. Continues to complain of some nausea and attributes this to pain medication. She has been oob and ambulated. Voiding without problems, has not had BM. Reports some headaches, but says this is a chronic issues from her previous neck surgery. Otherwise, patient is doing well. Denies cp, sob, n/v/d, f/c/s. Objective Vital Signs and I&Os Vital Signs Date Time Temp Pulse Resp B/P B/P Pulse O2 O2 Flow FiO2 Mean Ox Delivery Rate 06/25 0814 97.6 68 18 110/80 95 Nasal 2.5L Cannula 06/25 0752 97.9 67 20 130/80 06/25 0330 97.9 67 20 130/80 98 Room Air 06/25 0130 97.6 67 20 122/84 98 Room Air 06/24 2150 98.0 70 20 140/70 97 06/24 1357 98.9 83 20 158/84 97 Room Air Intake & Output 06/25 1600 06/25 0800 06/25 0000 06/24 1600 06/24 0800 06/24 0000 Intake Total 350 120 700 750 Output Total 40 110 200 Balance 310 10 500 750 Intake, IV 250 20 700 700 Intake, Oral 100 100 50 Output, 40 110 200 Drainage Patient 221 lb 245 lb 245 lb Weight Physical Exam: General: elderly female sitting at bedside chair, answering questions without problems, nad CV: RRR, s1s2 Pulm: CTA in bilateral lung villalba Abdomen/flank: right flank IR drain attached to bile bag with blood and pus in bag, minimal surround tenderness, bowel sounds presents, no abd tenderness Extremities: feet are warm and well perfused Current Medications: Current Medications Sig/Gunner Start time Last Medication Dose Route Stop Time Status Admin Ampicillin Sodium/ 3,000 MG Q6 06/23 2359 AC 06/25 Sulbactam Sodium IV 0554 Sodium Chloride 100 ML Dextrose/Sodium 1,000 ML Q10H 06/24 1999 DC 06/23 Chloride IV 2308 Gabapentin 400 MG Q8 06/23 2330 AC 06/25 PO 0554 Heparin Sodium 5,000 UNIT Q8 06/23 220 AC 06/25 (Porcine) SC 0601 Ibuprofen 800 MG ONCE ONE 06/25 1999 DC 06/24 PO 06/24 Ketorolac 30 MG Q8P PRN 06/23 2199 DC 06/24 Tromethamine IV 06/28 2300 0755 Lactobacillus 1 CAP BID 06/24 2100 AC 06/25 Acidophilus PO 0753 Lidocaine 1 ML .STK-MED ONE 06/24 1107 DC ID 06/24 1108 Lisinopril 10 MG DAILY 06/24 0900 AC 06/25 PO 0752 Morphine Sulfate 2 MG Q4P PRN 06/24 0015 AC 06/24 IV 2132 Morphine Sulfate 4 MG Q4 HRS NEEDED PRN 06/24 0015 AC 06/24 IV 1451 Ondansetron HCl 4 MG Q6 06/24 2359 AC 06/25 IV 06/25 1801 0558 Pantoprazole Sodium 40 MG Q12 06/23 2100 AC 06/25 IV 0753 Phytonadione 10 MG ONCE ONE 06/24 1600 DC 06/24 SC 06/24 1601 1640 Results Last 48 Hours of Labs: Laboratory Tests 06/25 06/24 06/23 06/23 0640 0738 2145 1739 Chemistry Sodium (137 - 145 mmol/L) 142 Potassium (3.5 - 5.1 mmol/L) 4.0 Chloride (98 - 107 mmol/L) 104 Carbon Dioxide (22 - 30 mmol/L) 24 Anion Gap (5 - 16) 14 BUN (7 - 17 mg/dL) 11 Creatinine (0.5 - 1.0 mg/dL) 0.5 Estimated GFR (>60 ml/min) > 60 BUN/Creatinine Ratio (7 - 25 %) 22.0 Lactic Acid Cancelled Total Bilirubin (0.2 - 1.3 mg/dL) 0.6 Direct Bilirubin (< 0.4 mg/dL) 0.5 H AST (14 - 36 U/L) 67 H ALT (9 - 52 U/L) 74 H Alkaline Phosphatase (<127 U/L) 256 H Total Protein (6.3 - 8.2 g/dL) 7.0 Albumin (3.5 - 5.0 g/dL) 3.4 L Lipase (23 - 300 U/L) 38 Coagulation PT (9.4 - 12.5 SEC) 13.8 H 14.6 H INR (0.90 - 1.19) 1.26 H 1.34 H APTT (25 - 37 SEC) 26 Hematology CBC w Diff Cancelled WBC Cancelled RBC Cancelled Hgb Cancelled Hct Cancelled MCV Cancelled MCH Cancelled MCHC Cancelled RDW Cancelled Plt Count Cancelled MPV Cancelled 06/23 1720 Urines Urinalysis LIGHT H Urine Color (YEL,AMB,STR) YEL Urine Clarity (CLEAR) CLEAR Urine pH (5.0 - 8.0) 7.0 Ur Specific [place] (1.001 - 1.035) <= 1.005 Urine Protein (NEG,<30 MG/DL) NEG Urine Ketones (NEG) 15 H Urine Nitrite (NEG) NEG Urine Bilirubin (NEG) NEG Urine Urobilinogen (0.1 - 1.0 EU/dl) 2.0 H Ur Leukocyte Esterase (NEG) TRACE H Ur Microscopic SEDIMENT EXAMINED Urine WBC (0 - 2 /HPF) 1-3 H Ur Epithelial Cells (NONE,FEW) FEW Urine Bacteria (NEG/NONE) FEW H Urine Hemoglobin (NEG) NEG Urine Glucose (N MG/DL) NEG 06/23 1450 Chemistry Sodium (137 - 145 mmol/L) 138 Potassium (3.5 - 5.1 mmol/L) 4.4 Chloride (98 - 107 mmol/L) 101 Carbon Dioxide (22 - 30 mmol/L) 22 Anion Gap (5 - 16) 14 BUN (7 - 17 mg/dL) 14 Creatinine (0.5 - 1.0 mg/dL) 0.6 Estimated GFR (>60 ml/min) > 60 BUN/Creatinine Ratio (7 - 25 %) 23.3 Glucose (65 - 99 mg/dL) 156 H Lactic Acid (0.7 - 2.1 mmol/L) 1.1 Calcium (8.4 - 10.2 mg/dL) 9.5 Total Bilirubin (0.2 - 1.3 mg/dL) 0.7 AST (14 - 36 U/L) 72 H ALT (9 - 52 U/L) 75 H Alkaline Phosphatase (<127 U/L) 252 H C-Reactive Prot, Quant (<1.0 mg/dL) > 9.0 H C-React Prot High Sens (1.0 - 3.0 mg/L) > 15.0 H Total Protein (6.3 - 8.2 g/dL) 6.6 Albumin (3.5 - 5.0 g/dL) 3.3 L Globulin (1.9 - 4.2 gm/dL) 3.3 Albumin/Globulin Ratio (1.1 - 2.2 %) 1.0 L Lipase (23 - 300 U/L) 21 L Hematology CBC w Diff MAN DIFF ORDERED WBC (4.8 - 10.8 /CUMM) 11.7 H RBC (4.20 - 5.40 /CUMM) 4.03 L Hgb (12.0 - 16.0 G/DL) 11.6 L Hct (37 - 47 %) 35.8 L MCV (81.0 - 99.0 FL) 88.7 MCH (27.0 - 31.0 PG) 28.8 MCHC (33.0 - 37.0 G/DL) 32.5 L RDW (11.5 - 14.5 %) 13.5 Plt Count (130 - 400 /CUMM) 484 H MPV (7.4 - 10.4 FL) 7.6 Gran % (42.2 - 75.2 %) 92.9 H Lymphocytes % (20.5 - 51.1 %) 5.4 L Monocytes % (1.7 - 9.3 %) 1.6 L Eosinophils % (0 - 5 %) 0.1 Basophils % (0.0 - 2.0 %) 0 Absolute Granulocytes (1.4 - 6.5 /CUMM) 10.9 H Segmented Neutrophils (42.2 - 75.2 %) 89 H Band Neutrophils (0.0 - 5.0 %) 2 Absolute Lymphocytes (1.2 - 3.4 /CUMM) 0.6 L Lymphocytes (20.5 - 51.1 %) 5 L Monocytes (1.7 - 9.3 %) 4 Absolute Monocytes (0.10 - 0.60 /CUMM) 0.2 Absolute Eosinophils (0.0 - 0.7 /CUMM) 0 Absolute Basophils (0.0 - 0.2 /CUMM) 0 Platelet Estimate (ADEQUATE) VERIFIED BY SMEAR Anisocytosis 1+ Assessment/Plan Assessment/Plan This is a 66 y/o F w/ PMHx of obesity, HTN, DM, OA, endometrial ca s/p hysterectomy, cholelithiasis s/p lap choly, liver biospy showing cirrhosis with mild steatohepatistis, and hx of laparoscopic Aram-en-Y gastric bypass is now POD#2 s/p RI drainage of right flank abscess Patient and plan discussed with Dr. Gary - appreciate GI and ID recommendations -Once surgery cultures are finalized and ID has given final abx recs, but will need lap assisted ERCP per GI. - F/U on morning labs - F/U cultures - growing gram + rods - dc IV narcotics and change to PO - monitor and record drain output - sc heparin - continue abx per ID Core Measures Venous Thromboembolism VTE Risk Factors Surgery No Mechanical VTE Prophylaxis d/t N/A MechProphylax Ordered No VTE Pharm Prophylaxis d/t NA PharmProphylax ordered
--- NOTE | 2017-06-25 12:46 | PN- Infect Dx ---
Subjective Subjective: This is a 66-year-old woman with a significant past medical history for diabetes , endometrial cancer, cirrhosis with mild steatohepatitis, laparoscopic Aram-en- Y gastric bypass. Admitted on June 23 with a 4 day history of right flank burning pain associated with anorexia, decreased p.o. intake and an episode of chills without nausea, vomiting, abdominal pain, change in her bowels, urinary symptoms or fever. On admission she was afebrile. Laboratory data revealed a white blood cell count of 12,000. Chest x-ray was negative. CT of the abdomen and pelvis with IV contrast revealed a complex fluid collection along the right flank, extending from the right lobe of the liver, through the right flank muscle inferiorly to the ribs, measuring 20 x 5 x 10 cm, with septations within it and with subtle edema around the collection through the abdominal wall; intrahepatic and extra hepatic biliary ductal dilatation, with a 5 mm stone in the distal common bile duct; diverticulosis. She was begun on Unasyn and has remained afebrile. She underwent drainage of the right flank collection June 24, with removal of 80 cc of pus, and with a catheter left in place. She currently complains of headache, an episode of nausea and vomiting. Overall she states that she feels much better than when she arrived at the hospital. Review of Systems Constitutional: Denies: fever, malaise, weakness. EENTM: Reports: no symptoms. Cardiovascular: Reports: no symptoms. Respiratory: Reports: no symptoms. Gastrointestinal: Reports: nausea, vomiting. Genitourinary: Reports: no symptoms. Musculoskeletal: Reports: back pain, neck pain. Neurological/Psychological: Reports: no symptoms. Objective Last 24 Hrs of Vital Signs/I&O Vital Signs Date Time Temp Pulse Resp B/P B/P Pulse O2 O2 Flow FiO2 Mean Ox Delivery Rate 06/25 0814 97.6 68 18 110/80 95 Nasal 2.5L Cannula 06/25 0752 97.9 67 20 130/80 06/25 0330 97.9 67 20 130/80 98 Room Air 06/25 0130 97.6 67 20 122/84 98 Room Air 06/24 2150 98.0 70 20 140/70 97 06/24 1357 98.9 83 20 158/84 97 Room Air Intake & Output 06/25 1600 06/25 0800 06/25 0000 Intake Total 350 120 Output Total 40 310 Balance 310 -190 Intake, IV 250 20 Intake, Oral 100 100 Output, 40 310 Drainage Patient 221 lb Weight Physical Exam General Appearance: well developed/nourished, no apparent distress, alert, awake Head: atraumatic, normal appearance Ears, Nose, Throat: normal pharynx Neck: normal inspection, supple Cardiovascular: regular rate/rhythm Respiratory: normal breath sounds, chest non-tender, no respiratory distress Abdomen: normal bowel sounds, soft, non-tender Results Last 24 Hours of Lab Results: Laboratory Tests 06/25 0640 Coagulation PT (9.4 - 12.5 SEC) 13.8 H INR (0.90 - 1.19) 1.26 H Last 24 Hours of Henrique Results: Microbiology Date/Time Procedure - Status Source Growth 06/24 0950 Body Fluid Culture - RES BODY FLUID 06/24 0950 Gram Stain - RES BODY FLUID 06/23 1750 Blood Culture - RES BLOOD 06/23 1735 Blood Culture - RES BLOOD Recent Imaging Studies: Reviewed Assessment/Plan ID Impression: This is a 66-year-old woman status post laparoscopic cholecystectomy and gastric bypass over 6 years prior to admission, with a liver biopsy at that time revealing cirrhosis, admitted on June 23 with a 4 day history of right flank pain , associated with anorexia, decreased p.o. intake and an episode of chills, found to be afebrile with a mild leukocytosis and with a CT of the abdomen and pelvis revealing a complex fluid collection along the right flank, now status post drainage of purulent fluid, with the gram stain of the fluid revealing many white blood cells and many gram-positive rods with speciation pending. The etiology of the right flank abscess is unclear. Given the presence of choledocholithiasis and elevated liver enzymes I suspect she has a low-grade cholangitis and that, at some point, she sustained a perforation of the biliary tree, resulting in this collection, which appears to be tracking through the muscle. The gram stain, revealing gram-positive rods, is suggestive of Clostridium, which would support a biliary or upper GI process. She is currently on Unasyn, which can be continued pending final cultures. Suggestion: 1. Follow-up culture of the right flank abscess 2. Continue Unasyn pending sensitivities and speciation
[2017-06-25 14:05] VITALS: BP 120/80
[2017-06-25 17:50] LABS: ABSOLUTE BASOPHIL COUNT 0 /CUMM (0.0-0.2); ABSOLUTE EOSINOPHIL COUNT 0.1 /CUMM (0.0-0.7); ABSOLUTE GRANULOCYTE CT 6.7 /CUMM (1.4-6.5); ABSOLUTE LYMPH COUNT 1.3 /CUMM (1.2-3.4); ABSOLUTE MONOCYTE COUNT 0.3 /CUMM (0.10-0.60); BASOPHIL % 0.2 % (0.0-2.0); EOSINOPHIL % 0.8 % (0-5); GRANULOCYTE % 80.2 % (42.2-75.2); HEMATOCRIT 31.4 % (37-47); MEAN CORPUSCULAR HGB 29.1 PG (27.0-31.0); MEAN CORPUSCULAR HGB CONC 33.5 G/DL (33.0-37.0); MEAN PLATELET VOLUME 7.6 FL (7.4-10.4); PLATELET COUNT 490 /CUMM (130-400); RBC DISTRIBUTION WIDTH 13.1 % (11.5-14.5); RED BLOOD CELL CT 3.61 /CUMM (4.20-5.40); WHITE BLOOD CELL COUNT 8.3 /CUMM (4.8-10.8)
--- NOTE | 2017-06-25 19:31 | PN- Gastroenterology ---
Assessment/Plan GI Assessment/Recommendations: 66 y/o female, with numerous comorbidities, including morbid obesity, AODM, HTN, HLD, DJD, left TKR, right rotator cuff repair, C6/C7 spine surgery, post TAHBSO for endometrial Ca in 1982 (w/o adjuvant tx), followed by Dr. Romano for primary care & Dr. Boateng for GI in [place], [place]. 03/25/11: Lap CCKY w/o IOC & intraop liver bx per Dr. Neri- chronic cholecystitis & cirrhosis with mild steatohepatitis. Fe stains negative. (The pathology report recommended further w/u to exclude other causes of chronic hepatitis, such as viral, autoimmune and/or drug-induced, if clinically indicated). 05/25/11: GJ bypass (LRYGB), per Dr. Neri. The patient apparently was referred to Dr. Boateng for GI by Dr. Neri, after the 03/25/11: liver bx showed cirrhosis. The patient claimed she had EGD x [address] Boateng, last done approximately 2014, neither of them with varices. She stated she had a "benign polyp" removed by Dr. Boateng at her last colonoscopy of 2012, & was "due for one this year". The patient also said the CBD stone is chronic & "has been there for years", per Dr. Boateng. She denied any blood transfxs, IVDA, significant EtOH, or tattoos, regarding her cirrhosis. There was no FHx GI Ca, GI disease, or inherited liver disease. The patient presented to the [facility] 06/23/17 at 2:24 p.m., BIBA from home, with 4 days of burning, stabbing pain above the right hip/right flank, which was hard and tender to touch. The pain was accompanied by some mild shortness of breath, which then improved & her O2 sats were stable on RA. She denied any fevers or chills. She may have fallen a short while [employer], but was not certain. She denied any prior history of kidney stones or gross hematuria. She claimed approximately 1 month ago, she had a bladder infection and her PMD gave her a 5 day course of an unknown antibiotic. Her symptoms subsided then, but one week later, she developed symptoms of sinusitis and a persistent cough. She was again rx antibiotics by her PMD, but did not take them that time, and her symptoms subsided one week later. She denied any dysuria at the time of admission. She denied any rashes. She claimed she had a remote history of diverticulitis. She denied any vaginal spotting or D/C. Her bowel movements were normal. She denied any diarrhea, constipation, obstipation, tenesmus, change in stool caliber, BRBPR, or melena. She denied any nausea, vomiting, GERD, odynophagia, dysphagia, or early satiety. She denied any jaundice, dark urine, light stools, or pruritus. She claimed she has gotten forgetful in the past, attributed to Ambien , but denied any acute confusion. She denied any hip trauma. Upon arrival, BP 162/79, P 98, R 22, T 98.2, O2 sat 2L 98%. He was given IV Unasyn, IVF, & MS in the ER. BC were obtained. *The patient had a drain placed in her right flank by IR, just prior to my 06/24: GI consult, after which, her pain had resolved. The drain was putting out light chocolate colored liquid, most c/w probable abscess (*await dictated report of IR procedure note). She was comfortable & thirsty. 12/09/15: PMD- alb 4.4, glob 3.2, TBil 0.6, alk phos 81, AST 45, ALT 47, *Hep Bs Ag- neg, *Hep C Ab IgG- neg. 06/23/17: 1450- Admission labs- WBC 11.7 (89S/2B/5L/4M), H/H 11.6/35.8, MCV 88.7 , RDW 13.5, PLT 484, glu 156, BUN/Cr 14/0.6, GFR > 60, Na 138, K 4.4, HCO3 22, AG 14, lactate 1.1, lipase 21, Ca 9.5, alb 3.3, glob 3.3, TBil 0.7, alk phos 252 , AST 72, ALT 75, CRP > 9.0 06/23/17: 2145- BUN/Cr 11/0.5, GFR > 60, Na 142, K 4.0, HCO3 24, AG 14, lipase 38, alb 3.4, glob 3.6, TBil 0.6, DBil 0.5, alk phos 256, AST 67, ALT 74 06/23/17: U/A- clear yellow, < 1.005, 7.0, 1-3 WBC, few bact, 15+ ket, 2.0 urobil, neg nitrite, tr esterase. 06/23/17: BC X 2- neg x 1 day. 06/24/17: *BF C&S- pending (*20 cc turbid fluid removed from right flank abscess ). 06/23/17: PTT 26 06/24/17: PT 14.6, INR 1.34. 06/23/17: EKG- NSR @ 89, nl axis, nl int, early transition, w/o ischemia. 06/23/17: CT ABD & PELVIS W IV CONTRAST- IMPRESSION: 1. Complex septated collection (20 x 5 x 10 cm), from right lobe of liver to right flank muscle, inferiorly to ribs, consistent with abscess along the right flank. 2. Status post cholecystectomy. Dilated IHD/EHD with CBD 1.6 cm. 5 mm calcified stone in the distal CBD. Atrophic pancreas. Normal spleen. 3. Status post gastric bypass. 4. Diverticulosis of the left colon. No acute change of the bowel. Normal AP. 5. Fat conatining umbilical hernia. 6. Minimal right pleural effusion. 7. ASHD A-I arteries, w/o aneurysm. 8. Uterus absent. 9. DJD T-L spine & hips B/L, R>L. This critical result was discussed with Savi Small on 06/23/2017, 5:00 PM and it was ascertained that the content and urgency of the report was understood at the time of direct communication. DICTATED BY: Nilesh Pagan MD DATE/TIME DICTATED:06/23/17 1648 06/23/17: XRY-CHEST XRAY, TWO VIEWS- No acute disease. No effusion. 06/24/17: US-GUIDANCE PROCEDURE NOTE: Informed consent was obtained from the patient prior to the procedure. During this process, the procedure and potential alternatives were explained along with the intended outcome and benefits. The risks of the procedure, including the possibility of an unsuccessful procedure, as well as the risk of not doing the procedure, were discussed. The patient was given the opportunity to ask questions regarding the procedure and appeared competent to make decisions. A signed consent form documenting this discussion was placed in the medical record. A time-out procedure was performed. TECHNIQUE: The patient was placed in the left side down decubitus position on the ultrasound table. A time-out was performed. The right abdomen was prepped and draped in the usual sterile fashion. 10 mL of 1% lidocaine was used to obtain local anesthesia of the skin and deeper tissues. A 22-gauge needle was advanced into the collection and fabrizio pus was aspirated. A 12 Arabic locking catheter was then advanced trocar style into the abscess under direct ultrasound guidance. The distal pigtail was formed. The catheter was secured to the skin with a single silk suture and a sterile dressing was placed over the site. The catheter was connected to gravity drainage bag. *80 mL of pus was aspirated and sent for the requested studies. The patient tolerated the procedure well. IMPRESSION: Successful ultrasound-guided abscess drainage. PLAN: 1. The patient was stable after the procedure and no complications were noted. 2. Drain to be flushed with 10 mL's normal saline twice daily. DICTATED BY: Stan Salas MD DATE/TIME DICTATED:06/24/17 1444 *As of 06/24/17, I felt that the patient's chronic CBD stone (apparently dates back years), was incidental in nature and may have nothing to do with the patient's right flank abscess. Clinically, she did not have cholangitis. I was not certain as to what the exact etiology of the right flank abscess was (? urologic, ? GI > biliary). There was a questionable history of trauma. The history of cirrhosis was noted, & most likely was from meatabolic syndrome X. The patient has numerous risk factors for steatohepatitis-> cirrhosis, including morbid obesity, HTN, AODM, HLD, etc. There was no significant hx EtOH, nor any significant FHx. Her current LFTs could be reactive in nature from adjacent liver inflammation, from the right flank abscess. She had nothing clinically, nor radiographically, to suggest recurrent diverticulitis. The fact that she had GJ bypass (LRYGB) makes ERCP technically difficult, & would require laparoscopic assisted ERCP. Her reducible umbilical hernia is incidental in nature. 06/23/17: BC x 2- remain neg 06/24/17: right flank abscess- many WBC, *many GP rods, with BF C&S- neg x 1 day. 06/25/17: WBC 8.3 (80% gran/7 gran Ab), H/H 10.5/31.4, PLT 490, PT 13.8, INR 1.2 , BUN/Cr 14/0.6, GFR > 60, Na 141, K 3.8, HCO3 27, AG 10, alb 3.1, glob 3.1, TBil 0.5, DBil 0.3, alk phos 192, AST 53, ALT 60 *As of 06/25/17, the patient remained hemodynamically stable & afebrile, with O2 sat RA 97%. Surgical & ID notes appreciated. I was verbally told by Dr. Mehta late on 06/24/17, that the Gram stain of the right flank abscess was growing gram-positive rods, suggestive of Clostridium, which would support a biliary or upper GI source for the infection (? if perforation of biliary tree at some point). She remained on IV Unasyn 3g Q6h. She was having some mild chronic headaches, which preceded her antibiotics. She did have some mild nausea without any significant vomiting, probably from the Unasyn, for which she was getting Zofran. She was on a regular diet & ambulated. She denied any fevers, chills, jaundice, CP, SOB, or abdominal pain. *She was rxd Ibuprofen, but would prefer to avoid NSAIDs in a cirrhotic. Her LFTs were slightly improved, as was her WBC. *The right flank drain had put out 310 cc on 06/24/17, down to 40 cc on 06/25/17, & the fluid was becoming less purulent. She had recieved 1 dose of empiric Vitamin K 10 mg sc x1 . *SUGGEST- Regular diet as tolerated. IV Unasyn 3g IVPB Q6h. Follow-up BC & right flank C&S (? Clostridium with GP rods). Check urine C&S. Follow-up with ID. *Zofran as needed. If not obtained at Dr. Boateng, consideration for semi-electively checking full Hep A, B, & C serologies, HIV, Fe, TIBC, ferritin, DELILAH, AMA, & A1AT. Serial LFTs. DVT prophylaxis. *Duration of right flank drainage tube will be dependent on output, clinical course, & eventual follow-up imaging studies, to be coordinated by surgery & IR. Assuming the patient continues to improve, I anticipate outpt vs. inpt coordinated lap assisted ERCP, which will require temporarilly creating a gastric port, in order to proceed. I do not perform interventional ERCP. The case was again discussed with the patient, her , Nilesh, & her daughter Soraya, & previously with Dr. Oscar, Dr. Cheikh Flores, & Dr. Mehta. Assuming this is done as an outpatient, the patient will decide on whether she wants the lap assisted ERCP done here, or by her usual GI group in [place]. The patient is apparently due for f/u surveillance colonoscopy later in [address] Boateng, regarding her hx colon polyps. (EGD there have reportedly been negative for varices). Will defer to Dr. Boateng, regarding hepatoma surveillance, with AFP/RUQ sono Q 6 months, vaccinations, etc. Avoid hepatotoxins, avoid NSAIDs (*on inpt Ketorolac prn, switched to Ibuprofen), & keep Tylenol use to a minimum. The patient was given our office number. Further GI recommendations to follow, depending on clinical course. Problem List: 1. Abscess of flank 2. Common bile duct stone 3. Cirrhosis 4. Abnormal LFTs 5. Aram-en-Y gastrojejunostomy 6. Diverticula of colon 7. Umbilical hernia without obstruction and without gangrene 8. History of colon polyps Subjective Subjective: 06/23/17: BC x 2- remain neg 06/24/17: right flank abscess- many WBC, *many GP rods, with BF C&S- neg x 1 day. 06/25/17: WBC 8.3 (80% gran/7 gran Ab), H/H 10.5/31.4, PLT 490, PT 13.8, INR 1.2 , BUN/Cr 14/0.6, GFR > 60, Na 141, K 3.8, HCO3 27, AG 10, alb 3.1, glob 3.1, TBil 0.5, DBil 0.3, alk phos 192, AST 53, ALT 60 *As of 06/25/17, the patient remained hemodynamically stable & afebrile, with O2 sat RA 97%. Surgical & ID notes appreciated. I was verbally told by Dr. Mehta late on 06/24/17, that the Gram stain of the right flank abscess was growing gram-positive rods, *suggestive of Clostridium, which would support a biliary or upper GI source for the infection (? if perforation of biliary tree at some point). She remained on IV Unasyn 3g Q6h. She was having some mild chronic headaches, which preceded her antibiotics. She did have some mild nausea without any significant vomiting, probably from the Unasyn, for which she was getting Zofran. She was on a regular diet & ambulated. She denied any fevers, chills, jaundice, CP, SOB, or abdominal pain. *She was rxd Ibuprofen, but would prefer to avoid NSAIDs in a cirrhotic. Her LFTs were slightly improved, as was her WBC. *The right flank drain had put out 310 cc on 06/24/17, down to 40 cc on 06/25/17, & the fluid was becoming less purulent. She had recieved 1 dose of empiric Vitamin K 10 mg sc x1 . Review of Systems: Full 14 point review of systems otherwise noncontributory, and as above. Review of Systems Constitutional: Denies: chills, diaphoresis, fever, malaise, weakness, unexplained weight loss. EENTM: Denies: blurred vision, double vision, visual changes, eye pain, eye drainage, eye tearing, icterus, ear discharge, ear pain, ear redness, hearing changes, nasal congestion, epistaxis, nasal pain, throat pain, throat swelling, mouth pain, tooth pain. Cardiovascular: Denies: chest pain, edema, orthopena, palpitations, peripheral edema, syncope. Respiratory: Denies: cough, hemoptysis, orthopnea, short of breath, sputum production, stridor, wheezing. GI: Reports: mild nausea (? due to abx). Denies: abdominal pain (right flank- resolved post tube), bloating, constipation , diarrhea, distention, bowel incontinence, melena, nausea, bloody stool, changes in stool, vomiting, steatorrhea. Genitourinary: Denies: discharge, dysuria, frequency, hematuria, hesitation, nocturia, pain, urgency. Musculoskeletal: Reports: neck pain (chronic, post C6/C7 surgery). Denies: back pain, gout, joint pain, joint swelling, muscle pain, muscle stiffness. Skin: Denies: cysts, change in skin color, change in hair/nails, dryness, erythema, jaundice, lesions, lymphangitis, lumps, moles, rash. Neurological/Psychological: Denies: anxiety, ataxia, cognitive dysfunction, confusion, depressed, dementia, emotional problems, headache, numbness, paresthesia, pre-existing deficit, petit mal seizures, tingling, tremors, tonic-clonic seizures, unable to move lower ext , unable to move upper ext, weakness. Hematologic/Endocrine: Denies: bruising, bleeding, polyuria, polydipsia. Immunologic/Allergic: Denies: splenectomy, HIV/AIDS, lymphadenopathy. All Other Systems: Reviewed and Negative Objective Vital Signs and I&Os Vital Signs Date Time Temp Pulse Resp B/P B/P Pulse O2 O2 Flow FiO2 Mean Ox Delivery Rate 06/25 1405 97.5 69 18 120/80 97 Room Air 06/25 0814 97.6 68 18 110/80 95 Nasal 2.5L Cannula 06/25 0752 97.9 67 20 130/80 06/25 0330 97.9 67 20 130/80 98 Room Air 06/25 0130 97.6 67 20 122/84 98 Room Air 06/24 2150 98.0 70 20 140/70 97 Intake & Output 06/25 1600 06/25 0400 06/24 1600 06/24 0400 06/23 1600 06/23 0400 Intake Total 7124 003 3630 0 Output Total 440 110 200 Balance 579 26 5044 0 Intake, IV 741 33 4590 Intake, Oral 900 100 50 0 Output, 40 110 200 Drainage Output, Urine 400 Patient 221 lb 245 lb 245 lb 245 lb Weight Weight Reported by Patient Measurement Method Physical Exam: Well-developed, well-nourished, pleasant morbidly obese female, in no apparent distress. Sclera anicteric. Conjunctiva pink. Oropharynx clear. No oral thrush. No aphthous ulcers. There is no adenopathy, thyromegaly, or JVD. Post C- spine scar. No peripheral stigmata of inflammatory bowel disease or chronic liver disease on exam. No spiders on the anterior chest wall. No CVA tenderness. Breast & pelvic exams: API. Lungs: clear to A&P, with slight decreased BS at the right base. No wheezing, rales, or rhonchi. Heart exam: regular rate rhythm, S1 and S2, without any significant murmur. Abdominal exam: normal bowel sounds, soft obese belly, nontender (*since right flank drainage tube placed by IR), without guarding or rebound. Reducible small umbillical hernia. Otherwise, no mass. No organomegaly. No fluid shift. No pulsatile mass. Digital rectal exam: deferred by patient. Extremities: without cyanosis or clubbing. Trace pedal edema B/L. Mod DJD. No rash. No palpable cords. *Right hip FROM & NT with int/ext rotation. No palmar erythema. No Dupuytren's contractures. Distal pulses 2+ bilaterally. DTRs 2+ bilaterally. Alert and oriented x 3. No tremor. No asterixis. A detailed exam for peripheral neuropathy was deferred. Current Medications: Current Medications Sig/Gunner Start time Last Medication Dose Route Stop Time Status Admin Ampicillin Sodium/ 3,000 MG Q6 06/23 2359 AC 06/25 Sulbactam Sodium IV 1833 Sodium Chloride 100 ML Gabapentin 400 MG Q8 06/23 2330 AC 06/25 PO 0554 Heparin Sodium 5,000 UNIT Q8 06/23 2200 AC 06/25 (Porcine) SC 1401 Ibuprofen 200 MG Q4 PRN 06/25 1115 AC 06/25 PO 1223 Ibuprofen 800 MG ONCE ONE 06/24 2000 DC 06/24 PO 06/24 Lactobacillus 1 CAP BID 06/24 2100 AC 06/25 Acidophilus PO 0753 Lisinopril 10 MG DAILY 06/24 0900 AC 06/25 PO 0752 Morphine Sulfate 2 MG Q4P PRN 06/24 0015 DC 06/24 IV 2132 Morphine Sulfate 4 MG Q4 HRS NEEDED PRN 06/24 0015 DC 06/24 IV 1451 Ondansetron HCl 4 MG Q6 06/24 2359 DC 06/25 IV 06/25 1801 1833 Oxycodone HCl 5 MG Q6 PRN 06/25 1130 AC PO Oxycodone HCl 2.5 MG Q6 PRN 06/25 1115 AC PO Pantoprazole Sodium 40 MG Q12 06/23 2100 AC 06/25 IV 0753 Results Pertinent Lab Results: Laboratory Tests 06/25 06/25 06/24 1735 0640 0738 Chemistry Sodium (137 - 145 mmol/L) 141 Potassium (3.5 - 5.1 mmol/L) 3.8 Chloride (98 - 107 mmol/L) 104 Carbon Dioxide (22 - 30 mmol/L) 27 Anion Gap (5 - 16) 10 BUN (7 - 17 mg/dL) 14 Creatinine (0.5 - 1.0 mg/dL) 0.6 Estimated GFR (>60 ml/min) > 60 BUN/Creatinine Ratio (7 - 25 %) 23.3 Total Bilirubin (0.2 - 1.3 mg/dL) 0.5 Direct Bilirubin (< 0.4 mg/dL) 0.3 AST (14 - 36 U/L) 53 H ALT (9 - 52 U/L) 60 H Alkaline Phosphatase (<127 U/L) 192 H Total Protein (6.3 - 8.2 g/dL) 6.2 L Albumin (3.5 - 5.0 g/dL) 3.1 L Coagulation PT (9.4 - 12.5 SEC) 13.8 H 14.6 H INR (0.90 - 1.19) 1.26 H 1.34 H Hematology CBC w Diff NO MAN DIFF REQ Cancelled WBC (4.8 - 10.8 /CUMM) 8.3 Cancelled RBC (4.20 - 5.40 /CUMM) 3.61 L Cancelled Hgb (12.0 - 16.0 G/DL) 10.5 L Cancelled Hct (37 - 47 %) 31.4 L Cancelled MCV (81.0 - 99.0 FL) 87.0 Cancelled MCH (27.0 - 31.0 PG) 29.1 Cancelled MCHC (33.0 - 37.0 G/DL) 33.5 Cancelled RDW (11.5 - 14.5 %) 13.1 Cancelled Plt Count (130 - 400 /CUMM) 490 H Cancelled MPV (7.4 - 10.4 FL) 7.6 Cancelled Gran % (42.2 - 75.2 %) 80.2 H Lymphocytes % (20.5 - 51.1 %) 15.2 L Monocytes % (1.7 - 9.3 %) 3.6 Eosinophils % (0 - 5 %) 0.8 Basophils % (0.0 - 2.0 %) 0.2 Absolute Granulocytes (1.4 - 6.5 /CUMM) 6.7 H Absolute Lymphocytes (1.2 - 3.4 /CUMM) 1.3 Absolute Monocytes (0.10 - 0.60 /CUMM) 0.3 Absolute Eosinophils (0.0 - 0.7 /CUMM) 0.1 Absolute Basophils (0.0 - 0.2 /CUMM) 0 06/23 06/23 06/23 2145 1739 1720 Chemistry Sodium (137 - 145 mmol/L) 142 Potassium (3.5 - 5.1 mmol/L) 4.0 Chloride (98 - 107 mmol/L) 104 Carbon Dioxide (22 - 30 mmol/L) 24 Anion Gap (5 - 16) 14 BUN (7 - 17 mg/dL) 11 Creatinine (0.5 - 1.0 mg/dL) 0.5 Estimated GFR (>60 ml/min) > 60 BUN/Creatinine Ratio (7 - 25 %) 22.0 Lactic Acid Cancelled Total Bilirubin (0.2 - 1.3 mg/dL) 0.6 Direct Bilirubin (< 0.4 mg/dL) 0.5 H AST (14 - 36 U/L) 67 H ALT (9 - 52 U/L) 74 H Alkaline Phosphatase (<127 U/L) 256 H Total Protein (6.3 - 8.2 g/dL) 7.0 Albumin (3.5 - 5.0 g/dL) 3.4 L Lipase (23 - 300 U/L) 38 Coagulation APTT (25 - 37 SEC) 26 Urines Urinalysis LIGHT H Urine Color (YEL,AMB,STR) YEL Urine Clarity (CLEAR) CLEAR Urine pH (5.0 - 8.0) 7.0 Ur Specific [place] (1.001 - 1.035) <= 1.005 Urine Protein (NEG,<30 MG/DL) NEG Urine Ketones (NEG) 15 H Urine Nitrite (NEG) NEG Urine Bilirubin (NEG) NEG Urine Urobilinogen (0.1 - 1.0 EU/dl) 2.0 H Ur Leukocyte Esterase (NEG) TRACE H Ur Microscopic SEDIMENT EXAMINED Urine WBC (0 - 2 /HPF) 1-3 H Ur Epithelial Cells (NONE,FEW) FEW Urine Bacteria (NEG/NONE) FEW H Urine Hemoglobin (NEG) NEG Urine Glucose (N MG/DL) NEG 05/10 1450 Chemistry Sodium (137 - 145 mmol/L) 138 Potassium (3.5 - 5.1 mmol/L) 4.4 Chloride (98 - 107 mmol/L) 101 Carbon Dioxide (22 - 30 mmol/L) 22 Anion Gap (5 - 16) 14 BUN (7 - 17 mg/dL) 14 Creatinine (0.5 - 1.0 mg/dL) 0.6 Estimated GFR (>60 ml/min) > 60 BUN/Creatinine Ratio (7 - 25 %) 23.3 Glucose (65 - 99 mg/dL) 156 H Lactic Acid (0.7 - 2.1 mmol/L) 1.1 Calcium (8.4 - 10.2 mg/dL) 9.5 Total Bilirubin (0.2 - 1.3 mg/dL) 0.7 AST (14 - 36 U/L) 72 H ALT (9 - 52 U/L) 75 H Alkaline Phosphatase (<127 U/L) 252 H C-Reactive Prot, Quant (<1.0 mg/dL) > 9.0 H C-React Prot High Sens (1.0 - 3.0 mg/L) > 15.0 H Total Protein (6.3 - 8.2 g/dL) 6.6 Albumin (3.5 - 5.0 g/dL) 3.3 L Globulin (1.9 - 4.2 gm/dL) 3.3 Albumin/Globulin Ratio (1.1 - 2.2 %) 1.0 L Lipase (23 - 300 U/L) 21 L Hematology CBC w Diff MAN DIFF ORDERED WBC (4.8 - 10.8 /CUMM) 11.7 H RBC (4.20 - 5.40 /CUMM) 4.03 L Hgb (12.0 - 16.0 G/DL) 11.6 L Hct (37 - 47 %) 35.8 L MCV (81.0 - 99.0 FL) 88.7 MCH (27.0 - 31.0 PG) 28.8 MCHC (33.0 - 37.0 G/DL) 32.5 L RDW (11.5 - 14.5 %) 13.5 Plt Count (130 - 400 /CUMM) 484 H MPV (7.4 - 10.4 FL) 7.6 Gran % (42.2 - 75.2 %) 92.9 H Lymphocytes % (20.5 - 51.1 %) 5.4 L Monocytes % (1.7 - 9.3 %) 1.6 L Eosinophils % (0 - 5 %) 0.1 Basophils % (0.0 - 2.0 %) 0 Absolute Granulocytes (1.4 - 6.5 /CUMM) 10.9 H Segmented Neutrophils (42.2 - 75.2 %) 89 H Band Neutrophils (0.0 - 5.0 %) 2 Absolute Lymphocytes (1.2 - 3.4 /CUMM) 0.6 L Lymphocytes (20.5 - 51.1 %) 5 L Monocytes (1.7 - 9.3 %) 4 Absolute Monocytes (0.10 - 0.60 /CUMM) 0.2 Absolute Eosinophils (0.0 - 0.7 /CUMM) 0 Absolute Basophils (0.0 - 0.2 /CUMM) 0 Platelet Estimate (ADEQUATE) VERIFIED BY SMEAR Anisocytosis 1+ Imaging/Other Studies: 06/23/17: EKG- NSR @ 89, nl axis, nl int, early transition, w/o ischemia. 06/23/17: CT ABD & PELVIS W IV CONTRAST- IMPRESSION: 1. Complex septated collection (20 x 5 x 10 cm), from right lobe of liver to right flank muscle, inferiorly to ribs, consistent with abscess along the right flank. 2. Status post cholecystectomy. Dilated IHD/EHD with CBD 1.6 cm. 5 mm calcified stone in the distal CBD. Atrophic pancreas. Normal spleen. 3. Status post gastric bypass. 4. Diverticulosis of the left colon. No acute change of the bowel. Normal AP. 5. Fat conatining umbilical hernia. 6. Minimal right pleural effusion. 7. ASHD A-I arteries, w/o aneurysm. 8. Uterus absent. 9. DJD T-L spine & hips B/L, R>L. This critical result was discussed with Savi Small on 06/23/2017, 5:00 PM and it was ascertained that the content and urgency of the report was understood at the time of direct communication. DICTATED BY: Nilesh Pagan MD DATE/TIME DICTATED:06/23/17 / 1648 06/23/17: XRY-CHEST XRAY, TWO VIEWS- No acute disease. No effusion. 06/24/17: US-GUIDANCE PROCEDURE NOTE: Informed consent was obtained from the patient prior to the procedure. During this process, the procedure and potential alternatives were explained along with the intended outcome and benefits. The risks of the procedure, including the possibility of an unsuccessful procedure, as well as the risk of not doing the procedure, were discussed. The patient was given the opportunity to ask questions regarding the procedure and appeared competent to make decisions. A signed consent form documenting this discussion was placed in the medical record. A time-out procedure was performed. TECHNIQUE: The patient was placed in the left side down decubitus position on the ultrasound table. A time-out was performed. The right abdomen was prepped and draped in the usual sterile fashion. 10 mL of 1% lidocaine was used to obtain local anesthesia of the skin and deeper tissues. A 22-gauge needle was advanced into the collection and fabrizio pus was aspirated. A 12 Arabic locking catheter was then advanced trocar style into the abscess under direct ultrasound guidance. The distal pigtail was formed. The catheter was secured to the skin with a single silk suture and a sterile dressing was placed over the site. The catheter was connected to gravity drainage bag. *80 mL of pus was aspirated and sent for the requested studies. The patient tolerated the procedure well. IMPRESSION: Successful ultrasound-guided abscess drainage. PLAN: 1. The patient was stable after the procedure and no complications were noted. 2. Drain to be flushed with 10 mL's normal saline twice daily. DICTATED BY: Stan Salas MD DATE/TIME DICTATED:06/24/17 / 1444
[2017-06-25 22:07] VITALS: BP 148/80
[2017-06-26 06:37] VITALS: BP 144/80
[2017-06-26 10:21] LABS: ABSOLUTE BASOPHIL COUNT 0 /CUMM (0.0-0.2); ABSOLUTE EOSINOPHIL COUNT 0.2 /CUMM (0.0-0.7); ABSOLUTE GRANULOCYTE CT 6.8 /CUMM (1.4-6.5); ABSOLUTE LYMPH COUNT 1.2 /CUMM (1.2-3.4); ABSOLUTE MONOCYTE COUNT 0.4 /CUMM (0.10-0.60); BASOPHIL % 0.3 % (0.0-2.0); EOSINOPHIL % 1.8 % (0-5); HEMATOCRIT 30.4 % (37-47); MEAN CORPUSCULAR VOLUME 87.8 FL (81.0-99.0); MEAN PLATELET VOLUME 8.6 FL (7.4-10.4); PLATELET COUNT 431 /CUMM (130-400); RBC DISTRIBUTION WIDTH 13.4 % (11.5-14.5); RED BLOOD CELL CT 3.46 /CUMM (4.20-5.40); WHITE BLOOD CELL COUNT 8.6 /CUMM (4.8-10.8)
--- NOTE | 2017-06-26 10:38 | PN- General Surgery ---
Subjective Subjective: No acute overnight events reported. Pt reporting less flank pain. C/O nausea around timing of antibiotic administration. Denies vomitting. Denies constipation, feels bowel function is at her baseline. Denies chest pain, shortness of breath and difficulty breathing. Still c/o headaches that resolve with roxicet. Objective Vital Signs and I&Os Vital Signs Date Time Temp Pulse Resp B/P B/P Pulse O2 O2 Flow FiO2 Mean Ox Delivery Rate 06/26 0945 97.8 73 20 144/80 06/26 0637 97.8 73 20 144/80 98 Room Air 06/26 0000 Room Air 06/25 2207 98.2 67 20 148/80 98 06/25 1405 97.5 69 18 120/80 97 Room Air Intake & Output 06/26 1600 06/26 0800 06/26 0000 06/25 1600 06/25 0800 06/25 0000 Intake Total 560 550 800 350 120 Output Total 105 400 40 310 Balance 560 445 400 310 -190 Intake, IV 200 150 250 20 Intake, Oral 360 400 800 100 100 Output, 105 40 310 Drainage Output, Urine 400 Patient 221 lb Weight Physical Exam: General: Alert and oriented x3, no acute distress Cardiac: RRR, s1s2 Pulm: CTA bilaterally, non-labored respiratory effort Abdomen: Non-distended Drainage: Cloudy, sanguinous. Output lessening in quantity each day, flushes reported to be patent Extremities: Moves all extremities, neurovascularly grossly intact. Skin warm and well perfused. Assessment/Plan Assessment/Plan Follow up cultures, on unasyn now, actinomyces. Appreciate gi and id input regarding further plan of care: Continued antiobiotic regimen based on cultures, consider picc if wet mixer abx appropriate Consider re-imaging to assess abscess post drainage Consider lap assisted ERCP as outpatient as per pt's request if clinically appropriate Core Measures Venous Thromboembolism VTE Risk Factors Surgery No Mechanical VTE Prophylaxis d/t N/A MechProphylax Ordered No VTE Pharm Prophylaxis d/t NA PharmProphylax ordered
--- NOTE | 2017-06-26 11:27 | PN- Gastroenterology ---
Assessment/Plan GI Assessment/Recommendations: 66 y/o female, with numerous comorbidities, including morbid obesity, AODM, HTN, HLD, DJD, left TKR, right rotator cuff repair, C6/C7 spine surgery, post TAHBSO for endometrial Ca in 1982 (w/o adjuvant tx), followed by Dr. Romano for primary care & Dr. Boateng for GI in [place], [place]. 03/25/11: Lap CCKY w/o IOC & intraop liver bx per Dr. Neri- chronic cholecystitis & cirrhosis with mild steatohepatitis. Fe stains negative. (The pathology report recommended further w/u to exclude other causes of chronic hepatitis, such as viral, autoimmune and/or drug-induced, if clinically indicated). 05/25/11: GJ bypass (LRYGB), per Dr. Neri. The patient apparently was referred to Dr. Boateng for GI by Dr. Neri, after the 03/25/11: liver bx showed cirrhosis. The patient claimed she had EGD x [address] Boateng, last done approximately 2014, neither of them with varices. She stated she had a "benign polyp" removed by Dr. Boateng at her last colonoscopy of 2012, & was "due for one this year". The patient also said the CBD stone is chronic & "has been there for years", per Dr. Boateng. She denied any blood transfxs, IVDA, significant EtOH, or tattoos, regarding her cirrhosis. There was no FHx GI Ca, GI disease, or inherited liver disease. The patient presented to the [facility] 06/23/17 at 2:24 p.m., BIBA from home, with 4 days of burning, stabbing pain above the right hip/right flank, which was hard and tender to touch. The pain was accompanied by some mild shortness of breath, which then improved & her O2 sats were stable on RA. She denied any fevers or chills. 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 She denied any prior history of kidney stones or gross hematuria. She claimed approximately 1 month ago, she had a bladder infection and her PMD gave her a 5 day course of an unknown antibiotic. Her symptoms subsided then, but one week later, she developed symptoms of sinusitis and a persistent cough. She was again rx antibiotics by her PMD, but did not take them that time, and her symptoms subsided one week later. She denied any dysuria at the time of admission. She denied any rashes. She claimed she had a remote history of diverticulitis. She denied any vaginal spotting or D/C. Her bowel movements were normal. She denied any diarrhea, constipation, obstipation, tenesmus, change in stool caliber, BRBPR, or melena. She denied any nausea, vomiting, GERD, odynophagia, dysphagia, or early satiety. She denied any jaundice, dark urine, light stools, or pruritus. She claimed she has gotten forgetful in the past, attributed to Ambien , but denied any acute confusion. She denied any hip trauma. Upon arrival, BP 162/79, P 98, R 22, T 98.2, O2 sat 2L 98%. He was given IV Unasyn, IVF, & MS in the ER. BC were obtained. *The patient had a drain placed in her right flank by IR, just prior to my 06/24: GI consult, after which, her pain had resolved. The drain was putting out light chocolate colored liquid, most c/w probable abscess (*await dictated report of IR procedure note). She was comfortable & thirsty. 12/09/15: PMD- alb 4.4, glob 3.2, TBil 0.6, alk phos 81, AST 45, ALT 47, *Hep Bs Ag- neg, *Hep C Ab IgG- neg. 06/23/17: 1450- Admission labs- WBC 11.7 (89S/2B/5L/4M), H/H 11.6/35.8, MCV 88.7 , RDW 13.5, PLT 484, glu 156, BUN/Cr 14/0.6, GFR > 60, Na 138, K 4.4, HCO3 22, AG 14, lactate 1.1, lipase 21, Ca 9.5, alb 3.3, glob 3.3, TBil 0.7, alk phos 252 , AST 72, ALT 75, CRP > 9.0 06/23/17: 2145- BUN/Cr 11/0.5, GFR > 60, Na 142, K 4.0, HCO3 24, AG 14, lipase 38, alb 3.4, glob 3.6, TBil 0.6, DBil 0.5, alk phos 256, AST 67, ALT 74 06/23/17: U/A- clear yellow, < 1.005, 7.0, 1-3 WBC, few bact, 15+ ket, 2.0 urobil, neg nitrite, tr esterase. 06/23/17: BC X 2- neg x 1 day. 06/24/17: *BF C&S- pending (*20 cc turbid fluid removed from right flank abscess ). 06/23/17: PTT 26 06/24/17: PT 14.6, INR 1.34. 06/23/17: EKG- NSR @ 89, nl axis, nl int, early transition, w/o ischemia. 06/23/17: CT ABD & PELVIS W IV CONTRAST- IMPRESSION: 1. Complex septated collection (20 x 5 x 10 cm), from right lobe of liver to right flank muscle, inferiorly to ribs, consistent with abscess along the right flank. 2. Status post cholecystectomy. Dilated IHD/EHD with CBD 1.6 cm. 5 mm calcified stone in the distal CBD. Atrophic pancreas. Normal spleen. 3. Status post gastric bypass. 4. Diverticulosis of the left colon. No acute change of the bowel. Normal AP. 5. Fat conatining umbilical hernia. 6. Minimal right pleural effusion. 7. ASHD A-I arteries, w/o aneurysm. 8. Uterus absent. 9. DJD T-L spine & hips B/L, R>L. This critical result was discussed with Savi Small on 06/23/2017, 5:00 PM and it was ascertained that the content and urgency of the report was understood at the time of direct communication. DICTATED BY: Nilesh Pagan MD DATE/TIME DICTATED:06/23/17 1648 06/23/17: XRY-CHEST XRAY, TWO VIEWS- No acute disease. No effusion. 06/24/17: US-GUIDANCE PROCEDURE NOTE: Informed consent was obtained from the patient prior to the procedure. During this process, the procedure and potential alternatives were explained along with the intended outcome and benefits. The risks of the procedure, including the possibility of an unsuccessful procedure, as well as the risk of not doing the procedure, were discussed. The patient was given the opportunity to ask questions regarding the procedure and appeared competent to make decisions. A signed consent form documenting this discussion was placed in the medical record. A time-out procedure was performed. TECHNIQUE: The patient was placed in the left side down decubitus position on the ultrasound table. A time-out was performed. The right abdomen was prepped and draped in the usual sterile fashion. 10 mL of 1% lidocaine was used to obtain local anesthesia of the skin and deeper tissues. A 22-gauge needle was advanced into the collection and fabrizio pus was aspirated. A 12 Bangladeshi locking catheter was then advanced trocar style into the abscess under direct ultrasound guidance. The distal pigtail was formed. The catheter was secured to the skin with a single silk suture and a sterile dressing was placed over the site. The catheter was connected to gravity drainage bag. *80 mL of pus was aspirated and sent for the requested studies. The patient tolerated the procedure well. IMPRESSION: Successful ultrasound-guided abscess drainage. PLAN: 1. The patient was stable after the procedure and no complications were noted. 2. Drain to be flushed with 10 mL's normal saline twice daily. DICTATED BY: Stan Salas MD DATE/TIME DICTATED:06/24/17 1444 *As of 06/24/17, I felt that the patient's chronic CBD stone (apparently dates back years), was incidental in nature and may have nothing to do with the patient's right flank abscess. Clinically, she did not have cholangitis. I was not certain as to what the exact etiology of the right flank abscess was (? urologic, ? GI > biliary). There was a questionable history of trauma. The history of cirrhosis was noted, & most likely was from meatabolic syndrome X. The patient has numerous risk factors for steatohepatitis-> cirrhosis, including morbid obesity, HTN, AODM, HLD, etc. There was no significant hx EtOH, nor any significant FHx. Her current LFTs could be reactive in nature from adjacent liver inflammation, from the right flank abscess. She had nothing clinically, nor radiographically, to suggest recurrent diverticulitis. The fact that she had GJ bypass (LRYGB) makes ERCP technically difficult, & would require laparoscopic assisted ERCP. Her reducible umbilical hernia is incidental in nature. 06/23/17: BC x 2- remain neg 06/24/17: right flank abscess- many WBC, *many GP rods, with BF C&S- neg x 1 day. 06/25/17: WBC 8.3 (80% gran/7 gran Ab), H/H 10.5/31.4, PLT 490, PT 13.8, INR 1.2 , BUN/Cr 14/0.6, GFR > 60, Na 141, K 3.8, HCO3 27, AG 10, alb 3.1, glob 3.1, TBil 0.5, DBil 0.3, alk phos 192, AST 53, ALT 60 *As of 06/25/17, the patient remained hemodynamically stable & afebrile, with O2 sat RA 97%. Surgical & ID notes appreciated. I was verbally told by Dr. Mehta late on 06/24/17, that the Gram stain of the right flank abscess was growing gram-positive rods, suggestive of Clostridium, which would support a biliary or upper GI source for the infection (? if perforation of biliary tree at some point). She remained on IV Unasyn 3g Q6h. She was having some mild chronic headaches, which preceded her antibiotics. She did have some mild nausea without any significant vomiting, probably from the Unasyn, for which she was getting Zofran. She was on a regular diet & ambulated. She denied any fevers, chills, jaundice, CP, SOB, or abdominal pain. *She was rxd Ibuprofen, but would prefer to avoid NSAIDs in a cirrhotic. Her LFTs were slightly improved, as was her WBC. *The right flank drain had put out 310 cc on 06/24/17, down to 40 cc on 06/25/17, & the fluid was becoming less purulent. She had recieved 1 dose of empiric Vitamin K 10 mg sc x1 . 06/26/17: WBC 8.6, H/H 10.0/30.4, PLT 431, BUN/Cr 14/0.6, GFR > 60, Na 139, K 4.0, HCO3 29, AG 9, albumin 2.8, globulin 3.2, TBil 0.4, DBil 0.4, alk phos 168, AST 48, ALT 64 *As of 06/26/17, patient remained hemodynamically stable & afebrile on IV Unasyn 3g Q6h, with O2 sat RA 98%. The output of her right flank drain was decreasing & was less purulent (now serosanguineous). She denied any fevers, chills, confusion, jaundice, abdominal pain, CP, or SOB. She had mild nausea, attributed to the Unasyn, which was tolerable on Zofran, without any vomiting. She was tolerating a regular diet. She otherwise had no complaints, aside from her chronic neck pain x years. Her NSAIDS were D/C'd. *A definite organism from her 06/24/17: right flank drain had still not yet been identified (gram stain with many WBC/many GP rods). 06/23/17: BC x 2- remained neg. *SUGGEST- Regular diet as tolerated. IV Unasyn 3g IVPB Q6h. *Follow-up BC & right flank C& S (? if Clostridium with GP rods). Check urine C&S. Follow-up with ID. *Zofran as needed. If not obtained at Dr. Boateng, consideration for semi-electively checking full Hep A, B, & C serologies, HIV, Fe, TIBC, ferritin, DELILAH, AMA, & A1AT. Serial LFTs. DVT prophylaxis. *Duration of right flank drainage tube will be dependent on output, clinical course, & eventual follow-up imaging studies, to be coordinated by surgery & IR. Defer to surgery/ID regarding timing of next CT scan to reassess right flank abscess- probably early this week. * Assuming the patient continues to improve, I anticipate outpt vs. inpt coordinated lap assisted ERCP, which will require temporarilly creating a gastric port, in order to proceed. I do not perform interventional ERCP. The case was again discussed with the patient, her , Nilesh, & her daughter Soraya, & previously with Dr. Oscar, Dr. Cheikh Flores, & Dr. Mehta. Assuming this is done as an outpatient, the patient will decide on whether she wants the lap assisted ERCP done here, or by her usual GI group in [place]. The patient is apparently due for f/u surveillance colonoscopy later in [address] Boateng, regarding her hx colon polyps. (EGD there have reportedly been negative for varices). Will defer to Dr. Boateng, regarding hepatoma surveillance, with AFP/RUQ sono Q 6 months, vaccinations, etc. Avoid hepatotoxins, avoid NSAIDs ( *on inpt Ketorolac prn, switched to Ibuprofen-> D/C), & keep Tylenol use to a minimum. The patient was given our office number. Further GI recommendations to follow, depending on clinical course. Problem List: 1. Abscess of flank 2. Common bile duct stone 3. Cirrhosis 4. Abnormal LFTs 5. Aram-en-Y gastrojejunostomy 6. Diverticula of colon 7. Umbilical hernia without obstruction and without gangrene 8. History of colon polyps Subjective Subjective: 06/26/17: WBC 8.6, H/H 10.0/30.4, PLT 431, BUN/Cr 14/0.6, GFR > 60, Na 139, K 4.0, HCO3 29, AG 9, albumin 2.8, globulin 3.2, TBil 0.4, DBil 0.4, alk phos 168, AST 48, ALT 64 *As of 06/26/17, patient remained hemodynamically stable & afebrile on IV Unasyn 3g Q6h, with O2 sat RA 98%. The output of her right flank drain was decreasing & was less purulent (now serosanguineous). She denied any fevers, chills, confusion, jaundice, abdominal pain, CP, or SOB. She had mild nausea, attributed to the Unasyn, which was tolerable on Zofran, without any vomiting. She was tolerating a regular diet. She otherwise had no complaints, aside from her chronic neck pain x years. Her NSAIDS were D/C'd. *A definite organism from her 06/24/17: right flank drain had still not yet been identified (gram stain with many WBC/many GP rods). 06/23/17: BC x 2- remained neg. Review of Systems: Full 14 point review of systems otherwise noncontributory, and as above. Review of Systems Constitutional: Denies: chills, diaphoresis, fever, malaise, weakness, unexplained weight loss. EENTM: Denies: blurred vision, double vision, visual changes, eye pain, eye drainage, eye tearing, icterus, ear discharge, ear pain, ear redness, hearing changes, nasal congestion, epistaxis, nasal pain, throat pain, throat swelling, mouth pain, tooth pain. Cardiovascular: Denies: chest pain, edema, orthopena, palpitations, peripheral edema, syncope. Respiratory: Denies: cough, hemoptysis, orthopnea, short of breath, sputum production, stridor, wheezing. GI: Reports: mild nausea (? due to abx). Denies: abdominal pain (right flank- resolved post tube), bloating, constipation , diarrhea, distention, bowel incontinence, melena, nausea, bloody stool, changes in stool, vomiting, steatorrhea. Genitourinary: Denies: discharge, dysuria, frequency, hematuria, hesitation, nocturia, pain, urgency. Musculoskeletal: Reports:chronic neck pain (post C6/C7 surgery). Denies: back pain, gout, joint pain, joint swelling, muscle pain, muscle stiffness. Skin: Denies: cysts, change in skin color, change in hair/nails, dryness, erythema, jaundice, lesions, lymphangitis, lumps, moles, rash. Neurological/Psychological: Denies: anxiety, ataxia, cognitive dysfunction, confusion, depressed, dementia, emotional problems, headache, numbness, paresthesia, pre-existing deficit, petit mal seizures, tingling, tremors, tonic-clonic seizures, unable to move lower ext , unable to move upper ext, weakness. Hematologic/Endocrine: Denies: bruising, bleeding, polyuria, polydipsia. Immunologic/Allergic: Denies: splenectomy, HIV/AIDS, lymphadenopathy. All Other Systems: Reviewed and Negative Objective Vital Signs and I&Os Vital Signs Date Time Temp Pulse Resp B/P B/P Pulse O2 O2 Flow FiO2 Mean Ox Delivery Rate 06/26 0945 97.8 73 20 144/80 06/26 0637 97.8 73 20 144/80 98 Room Air 06/26 0000 Room Air 06/25 2207 98.2 67 20 148/80 98 06/25 1405 97.5 69 18 120/80 97 Room Air Intake & Output 06/26 1600 06/26 0400 06/25 1600 06/25 0400 06/24 1600 06/24 0400 Intake Total 067 060 2637 120 1450 Output Total 105 440 110 200 Balance 560 445 745 47 3426 Intake, IV 200 150 635 63 1816 Intake, Oral 360 400 900 100 50 Output, 105 40 110 200 Drainage Output, Urine 400 Patient 221 lb 245 lb 245 lb Weight Physical Exam: Well-developed, well-nourished, pleasant, morbidly obese female, in no apparent distress. Sclera anicteric. Conjunctiva pink. Oropharynx clear. No oral thrush. No aphthous ulcers. There is no adenopathy, thyromegaly, or JVD. Post C- spine scar. No peripheral stigmata of inflammatory bowel disease or chronic liver disease on exam. No spiders on the anterior chest wall. No CVA tenderness. Breast & pelvic exams: API. Lungs: clear to A&P, with slight decreased BS at the right base. No wheezing, rales, or rhonchi. Heart exam: regular rate rhythm, S1 and S2, without any significant murmur. Abdominal exam: normal bowel sounds, soft obese belly, nontender (*since right flank drainage tube placed by IR), without guarding or rebound. Reducible small umbillical hernia. Otherwise, no mass. No organomegaly. No fluid shift. No pulsatile mass. Digital rectal exam: deferred by patient. Extremities: without cyanosis or clubbing. Trace pedal edema B/L. Mod DJD. No rash. No palpable cords. *Right hip FROM & NT with int/ext rotation. No palmar erythema. No Dupuytren's contractures. Distal pulses 2+ bilaterally. DTRs 2+ bilaterally. Alert and oriented x 3. No tremor. No asterixis. A detailed exam for peripheral neuropathy was deferred. Current Medications: Current Medications Sig/Gunner Start time Last Medication Dose Route Stop Time Status Admin Acetaminophen 1,000 MG .STK-MED ONE 06/25 2216 DC IV 06/25 2217 Ampicillin Sodium/ 3,000 MG Q6 06/23 2359 AC 06/26 Sulbactam Sodium IV 0543 Sodium Chloride 100 ML Gabapentin 400 MG Q8 06/23 2330 AC 06/25 PO 0554 Heparin Sodium 5,000 UNIT Q8 06/23 2200 AC 06/26 (Porcine) SC 0543 Ibuprofen 200 MG Q4 PRN 06/25 1115 DC 06/25 PO 1223 Lactobacillus 1 CAP BID 06/24 2100 AC 06/26 Acidophilus PO 0945 Lisinopril 10 MG DAILY 06/24 0900 AC 06/26 PO 0945 Ondansetron HCl 4 MG Q6 06/26 0015 AC 06/26 IV 06/26 1801 0543 Ondansetron HCl 4 MG Q6 06/24 2359 DC 06/25 IV 06/25 1801 1833 Oxycodone HCl 5 MG Q6 PRN 06/25 1130 AC 06/26 PO 0949 Oxycodone HCl 2.5 MG Q6 PRN 06/25 1115 AC PO Pantoprazole Sodium 40 MG Q12 06/23 2100 AC 06/26 IV 0945 Results Pertinent Lab Results: Laboratory Tests 06/26 06/25 0650 1735 Chemistry Sodium (137 - 145 mmol/L) 139 141 Potassium (3.5 - 5.1 mmol/L) 4.0 3.8 Chloride (98 - 107 mmol/L) 102 104 Carbon Dioxide (22 - 30 mmol/L) 29 27 Anion Gap (5 - 16) 9 10 BUN (7 - 17 mg/dL) 14 14 Creatinine (0.5 - 1.0 mg/dL) 0.6 0.6 Estimated GFR (>60 ml/min) > 60 > 60 BUN/Creatinine Ratio (7 - 25 %) 23.3 23.3 Total Bilirubin (0.2 - 1.3 mg/dL) 0.4 0.5 Direct Bilirubin (< 0.4 mg/dL) 0.4 0.3 AST (14 - 36 U/L) 48 H 53 H ALT (9 - 52 U/L) 64 H 60 H Alkaline Phosphatase (<127 U/L) 168 H 192 H Total Protein (6.3 - 8.2 g/dL) 6.0 L 6.2 L Albumin (3.5 - 5.0 g/dL) 2.8 L 3.1 L Hematology CBC w Diff NO MAN DIFF REQ NO MAN DIFF REQ WBC (4.8 - 10.8 /CUMM) 8.6 8.3 RBC (4.20 - 5.40 /CUMM) 3.46 L 3.61 L Hgb (12.0 - 16.0 G/DL) 10.0 L 10.5 L Hct (37 - 47 %) 30.4 L 31.4 L MCV (81.0 - 99.0 FL) 87.8 87.0 MCH (27.0 - 31.0 PG) 29.0 29.1 MCHC (33.0 - 37.0 G/DL) 33.0 33.5 RDW (11.5 - 14.5 %) 13.4 13.1 Plt Count (130 - 400 /CUMM) 431 H 490 H MPV (7.4 - 10.4 FL) 8.6 7.6 Gran % (42.2 - 75.2 %) 79.0 H 80.2 H Lymphocytes % (20.5 - 51.1 %) 14.2 L 15.2 L Monocytes % (1.7 - 9.3 %) 4.7 3.6 Eosinophils % (0 - 5 %) 1.8 0.8 Basophils % (0.0 - 2.0 %) 0.3 0.2 Absolute Granulocytes (1.4 - 6.5 /CUMM) 6.8 H 6.7 H Absolute Lymphocytes (1.2 - 3.4 /CUMM) 1.2 1.3 Absolute Monocytes (0.10 - 0.60 /CUMM) 0.4 0.3 Absolute Eosinophils (0.0 - 0.7 /CUMM) 0.2 0.1 Absolute Basophils (0.0 - 0.2 /CUMM) 0 0 06/25 06/24 06/23 06/23 0640 0738 2145 1739 Chemistry Sodium (137 - 145 mmol/L) 142 Potassium (3.5 - 5.1 mmol/L) 4.0 Chloride (98 - 107 mmol/L) 104 Carbon Dioxide (22 - 30 mmol/L) 24 Anion Gap (5 - 16) 14 BUN (7 - 17 mg/dL) 11 Creatinine (0.5 - 1.0 mg/dL) 0.5 Estimated GFR (>60 ml/min) > 60 BUN/Creatinine Ratio (7 - 25 %) 22.0 Lactic Acid Cancelled Total Bilirubin (0.2 - 1.3 mg/dL) 0.6 Direct Bilirubin (< 0.4 mg/dL) 0.5 H AST (14 - 36 U/L) 67 H ALT (9 - 52 U/L) 74 H Alkaline Phosphatase (<127 U/L) 256 H Total Protein (6.3 - 8.2 g/dL) 7.0 Albumin (3.5 - 5.0 g/dL) 3.4 L Lipase (23 - 300 U/L) 38 Coagulation PT (9.4 - 12.5 SEC) 13.8 H 14.6 H INR (0.90 - 1.19) 1.26 H 1.34 H APTT (25 - 37 SEC) 26 Hematology CBC w Diff Cancelled WBC Cancelled RBC Cancelled Hgb Cancelled Hct Cancelled MCV Cancelled MCH Cancelled MCHC Cancelled RDW Cancelled Plt Count Cancelled MPV Cancelled 06/23 1720 Urines Urinalysis LIGHT H Urine Color (YEL,AMB,STR) YEL Urine Clarity (CLEAR) CLEAR Urine pH (5.0 - 8.0) 7.0 Ur Specific [place] (1.001 - 1.035) <= 1.005 Urine Protein (NEG,<30 MG/DL) NEG Urine Ketones (NEG) 15 H Urine Nitrite (NEG) NEG Urine Bilirubin (NEG) NEG Urine Urobilinogen (0.1 - 1.0 EU/dl) 2.0 H Ur Leukocyte Esterase (NEG) TRACE H Ur Microscopic SEDIMENT EXAMINED Urine WBC (0 - 2 /HPF) 1-3 H Ur Epithelial Cells (NONE,FEW) FEW Urine Bacteria (NEG/NONE) FEW H Urine Hemoglobin (NEG) NEG Urine Glucose (N MG/DL) NEG 06/23 1450 Chemistry Sodium (137 - 145 mmol/L) 138 Potassium (3.5 - 5.1 mmol/L) 4.4 Chloride (98 - 107 mmol/L) 101 Carbon Dioxide (22 - 30 mmol/L) 22 Anion Gap (5 - 16) 14 BUN (7 - 17 mg/dL) 14 Creatinine (0.5 - 1.0 mg/dL) 0.6 Estimated GFR (>60 ml/min) > 60 BUN/Creatinine Ratio (7 - 25 %) 23.3 Glucose (65 - 99 mg/dL) 156 H Lactic Acid (0.7 - 2.1 mmol/L) 1.1 Calcium (8.4 - 10.2 mg/dL) 9.5 Total Bilirubin (0.2 - 1.3 mg/dL) 0.7 AST (14 - 36 U/L) 72 H ALT (9 - 52 U/L) 75 H Alkaline Phosphatase (<127 U/L) 252 H C-Reactive Prot, Quant (<1.0 mg/dL) > 9.0 H C-React Prot High Sens (1.0 - 3.0 mg/L) > 15.0 H Total Protein (6.3 - 8.2 g/dL) 6.6 Albumin (3.5 - 5.0 g/dL) 3.3 L Globulin (1.9 - 4.2 gm/dL) 3.3 Albumin/Globulin Ratio (1.1 - 2.2 %) 1.0 L Lipase (23 - 300 U/L) 21 L Hematology CBC w Diff MAN DIFF ORDERED WBC (4.8 - 10.8 /CUMM) 11.7 H RBC (4.20 - 5.40 /CUMM) 4.03 L Hgb (12.0 - 16.0 G/DL) 11.6 L Hct (37 - 47 %) 35.8 L MCV (81.0 - 99.0 FL) 88.7 MCH (27.0 - 31.0 PG) 28.8 MCHC (33.0 - 37.0 G/DL) 32.5 L RDW (11.5 - 14.5 %) 13.5 Plt Count (130 - 400 /CUMM) 484 H MPV (7.4 - 10.4 FL) 7.6 Gran % (42.2 - 75.2 %) 92.9 H Lymphocytes % (20.5 - 51.1 %) 5.4 L Monocytes % (1.7 - 9.3 %) 1.6 L Eosinophils % (0 - 5 %) 0.1 Basophils % (0.0 - 2.0 %) 0 Absolute Granulocytes (1.4 - 6.5 /CUMM) 10.9 H Segmented Neutrophils (42.2 - 75.2 %) 89 H Band Neutrophils (0.0 - 5.0 %) 2 Absolute Lymphocytes (1.2 - 3.4 /CUMM) 0.6 L Lymphocytes (20.5 - 51.1 %) 5 L Monocytes (1.7 - 9.3 %) 4 Absolute Monocytes (0.10 - 0.60 /CUMM) 0.2 Absolute Eosinophils (0.0 - 0.7 /CUMM) 0 Absolute Basophils (0.0 - 0.2 /CUMM) 0 Platelet Estimate (ADEQUATE) VERIFIED BY SMEAR Anisocytosis 1+ Imaging/Other Studies: 06/23/17: EKG- NSR @ 89, nl axis, nl int, early transition, w/o ischemia. 06/23/17: CT ABD & PELVIS W IV CONTRAST- IMPRESSION: 1. Complex septated collection (20 x 5 x 10 cm), from right lobe of liver to right flank muscle, inferiorly to ribs, consistent with abscess along the right flank. 2. Status post cholecystectomy. Dilated IHD/EHD with CBD 1.6 cm. 5 mm calcified stone in the distal CBD. Atrophic pancreas. Normal spleen. 3. Status post gastric bypass. 4. Diverticulosis of the left colon. No acute change of the bowel. Normal AP. 5. Fat conatining umbilical hernia. 6. Minimal right pleural effusion. 7. ASHD A-I arteries, w/o aneurysm. 8. Uterus absent. 9. DJD T-L spine & hips B/L, R>L. This critical result was discussed with Savi Small on 06/23/2017, 5:00 PM and it was ascertained that the content and urgency of the report was understood at the time of direct communication. DICTATED BY: Nilesh Pagan MD DATE/TIME DICTATED:06/23/17 / 1648 06/23/17: XRY-CHEST XRAY, TWO VIEWS- No acute disease. No effusion. 06/24/17: US-GUIDANCE PROCEDURE NOTE: Informed consent was obtained from the patient prior to the procedure. During this process, the procedure and potential alternatives were explained along with the intended outcome and benefits. The risks of the procedure, including the possibility of an unsuccessful procedure, as well as the risk of not doing the procedure, were discussed. The patient was given the opportunity to ask questions regarding the procedure and appeared competent to make decisions. A signed consent form documenting this discussion was placed in the medical record. A time-out procedure was performed. TECHNIQUE: The patient was placed in the left side down decubitus position on the ultrasound table. A time-out was performed. The right abdomen was prepped and draped in the usual sterile fashion. 10 mL of 1% lidocaine was used to obtain local anesthesia of the skin and deeper tissues. A 22-gauge needle was advanced into the collection and fabrizio pus was aspirated. A 12 Bangladeshi locking catheter was then advanced trocar style into the abscess under direct ultrasound guidance. The distal pigtail was formed. The catheter was secured to the skin with a single silk suture and a sterile dressing was placed over the site. The catheter was connected to gravity drainage bag. *80 mL of pus was aspirated and sent for the requested studies. The patient tolerated the procedure well.
--- NOTE | 2017-06-26 11:38 | PN- Infect Dx ---
Subjective Subjective: This patient is a pleasant 66-year-old white female with right flank abscess. J -tube in place with decreased drainage. Patient feels well denies any fevers or chills. Does continue to have headaches at night which are really relieved by Roxicet. Review of Systems Constitutional: Reports: see HPI (Headaches). EENTM: Reports: no symptoms. Cardiovascular: Reports: no symptoms. Respiratory: Reports: no symptoms. Gastrointestinal: Reports: no symptoms. Comments: Drain in place with decreased serosanguineous drainage. Objective Last 24 Hrs of Vital Signs/I&O Vital Signs Date Time Temp Pulse Resp B/P B/P Pulse O2 O2 Flow FiO2 Mean Ox Delivery Rate 06/26 0945 97.8 73 20 144/80 06/26 0637 97.8 73 20 144/80 98 Room Air 06/26 0000 Room Air 06/25 2207 98.2 67 20 148/80 98 06/25 1405 97.5 69 18 120/80 97 Room Air Intake & Output 06/26 1600 06/26 0800 06/26 0000 Intake Total 560 550 Output Total 105 Balance 560 445 Intake, IV 200 150 Intake, Oral 360 400 Output, 105 Drainage Physical Exam General Appearance: well developed/nourished Head: atraumatic, normal appearance Ears, Nose, Throat: normal ENT inspection Neck: normal inspection Cardiovascular: regular rate/rhythm Respiratory: normal breath sounds Abdomen: normal bowel sounds, soft, non-tender Results Last 24 Hours of Lab Results: Laboratory Tests 06/26 06/25 0650 1735 Chemistry Sodium (137 - 145 mmol/L) 139 141 Potassium (3.5 - 5.1 mmol/L) 4.0 3.8 Chloride (98 - 107 mmol/L) 102 104 Carbon Dioxide (22 - 30 mmol/L) 29 27 Anion Gap (5 - 16) 9 10 BUN (7 - 17 mg/dL) 14 14 Creatinine (0.5 - 1.0 mg/dL) 0.6 0.6 Estimated GFR (>60 ml/min) > 60 > 60 BUN/Creatinine Ratio (7 - 25 %) 23.3 23.3 Total Bilirubin (0.2 - 1.3 mg/dL) 0.4 0.5 Direct Bilirubin (< 0.4 mg/dL) 0.4 0.3 AST (14 - 36 U/L) 48 H 53 H ALT (9 - 52 U/L) 64 H 60 H Alkaline Phosphatase (<127 U/L) 168 H 192 H Total Protein (6.3 - 8.2 g/dL) 6.0 L 6.2 L Albumin (3.5 - 5.0 g/dL) 2.8 L 3.1 L Hematology CBC w Diff NO MAN DIFF REQ NO MAN DIFF REQ WBC (4.8 - 10.8 /CUMM) 8.6 8.3 RBC (4.20 - 5.40 /CUMM) 3.46 L 3.61 L Hgb (12.0 - 16.0 G/DL) 10.0 L 10.5 L Hct (37 - 47 %) 30.4 L 31.4 L MCV (81.0 - 99.0 FL) 87.8 87.0 MCH (27.0 - 31.0 PG) 29.0 29.1 MCHC (33.0 - 37.0 G/DL) 33.0 33.5 RDW (11.5 - 14.5 %) 13.4 13.1 Plt Count (130 - 400 /CUMM) 431 H 490 H MPV (7.4 - 10.4 FL) 8.6 7.6 Gran % (42.2 - 75.2 %) 79.0 H 80.2 H Lymphocytes % (20.5 - 51.1 %) 14.2 L 15.2 L Monocytes % (1.7 - 9.3 %) 4.7 3.6 Eosinophils % (0 - 5 %) 1.8 0.8 Basophils % (0.0 - 2.0 %) 0.3 0.2 Absolute Granulocytes (1.4 - 6.5 /CUMM) 6.8 H 6.7 H Absolute Lymphocytes (1.2 - 3.4 /CUMM) 1.2 1.3 Absolute Monocytes (0.10 - 0.60 /CUMM) 0.4 0.3 Absolute Eosinophils (0.0 - 0.7 /CUMM) 0.2 0.1 Absolute Basophils (0.0 - 0.2 /CUMM) 0 0 Last 24 Hours of Henrique Results: Microbiology Date/Time Procedure - Status Source Growth 06/24 0950 Body Fluid Culture - RES BODY FLUID 06/24 0950 Gram Stain - RES BODY FLUID 06/23 1750 Blood Culture - RES BLOOD 06/23 1735 Blood Culture - RES BLOOD Recent Imaging Studies: No new studies Assessment/Plan ID Impression: This is a 66-year-old woman status post laparoscopic cholecystectomy and gastric bypass over 6 years prior to admission, admitted on June 23 with a 4 day history of right flank pain, associated with anorexia, decreased p.o. intake and an episode of chills, found to be afebrile with a mild leukocytosis and with a CT of the abdomen and pelvis revealing a complex fluid collection along the right flank, now status post drainage of purulent fluid, with the gram stain of the fluid revealing many white blood cells and many gram-positive rods with cultures no growth today. The patient continues to improve on current antibiotics. Suggestion: 1. Continue Unasyn 2. Roxicet for headache 3. Follow cultures
[2017-06-26 14:26] VITALS: BP 120/60
[2017-06-26 22:04] VITALS: BP 102/70
[2017-06-27 06:03] VITALS: BP 120/60
--- NOTE | 2017-06-27 08:15 | PN- General Surgery ---
See Addendum Subjective Subjective: HD#4 S/P IR PERC DRAIN OF RIGHT FLANK ABSCESS SITTING AT BEDSIDE WITH PRESENT EATING BREAKFAST DENEIS CP, SOB, NO N+V WITH REGULAR DIET MINIMAL PAIN COMPLAINTS ATTHIS TIME MICRO: HEAVY GROWTH OF ACTINOMYCES CURRENTLY ON UNASYN NO FEVER OR LEUKOCYTOSIS Objective Vital Signs and I&Os Vital Signs Date Time Temp Pulse Resp B/P B/P Pulse O2 O2 Flow FiO2 Mean Ox Delivery Rate 06/27 0603 97.0 64 20 120/60 98 Room Air 06/26 2204 96.6 74 20 102/70 98 06/26 1426 98.1 71 18 120/60 98 Room Air 06/26 0945 97.8 73 20 144/80 Intake & Output 06/27 1600 06/27 0800 06/27 0000 06/26 1600 06/26 0800 06/26 0000 Intake Total 300 300 800 560 550 Output Total 30 0 400 105 Balance 270 300 400 560 445 Intake, IV 200 150 Intake, Oral 300 300 800 360 400 Output, 30 0 105 Drainage Output, Urine 400 Physical Exam: CV: RRR LUNGS: CLEAR ABD: SOFT, +BS IR DRAIN SITE WITHOUT CELLULITIS OR INDURATION DRAIN: SMALL AMOUNT OF DARK BLOODY DRAINAGE EXT; WARM, DISTAL CMS INTACT, NO CALF TENDERNESS TO PALP Assessment/Plan Assessment/Plan SURGICAL STABLE PLAN F/U AM LABS F/U WITH ID FOR FINAL ABX AND COURSE OOB/AMBUALTE Core Measures Venous Thromboembolism VTE Risk Factors Surgery No Mechanical VTE Prophylaxis d/t N/A MechProphylax Ordered No VTE Pharm Prophylaxis d/t NA PharmProphylax ordered
[2017-06-27 08:32] LABS: ABSOLUTE BASOPHIL COUNT 0 /CUMM (0.0-0.2); ABSOLUTE EOSINOPHIL COUNT 0.1 /CUMM (0.0-0.7); ABSOLUTE GRANULOCYTE CT 5.8 /CUMM (1.4-6.5); ABSOLUTE LYMPH COUNT 1.3 /CUMM (1.2-3.4); ABSOLUTE MONOCYTE COUNT 0.3 /CUMM (0.10-0.60); BASOPHIL % 0.6 % (0.0-2.0); EOSINOPHIL % 1.9 % (0-5); GRANULOCYTE % 75.4 % (42.2-75.2); MEAN CORPUSCULAR HGB 28.6 PG (27.0-31.0); MEAN CORPUSCULAR HGB CONC 32.7 G/DL (33.0-37.0); MEAN CORPUSCULAR VOLUME 87.6 FL (81.0-99.0); MEAN PLATELET VOLUME 8.7 FL (7.4-10.4); PLATELET COUNT 416 /CUMM (130-400); RBC DISTRIBUTION WIDTH 13.4 % (11.5-14.5); RED BLOOD CELL CT 3.54 /CUMM (4.20-5.40); WHITE BLOOD CELL COUNT 7.7 /CUMM (4.8-10.8)
--- NOTE | 2017-06-27 11:36 | PN- Infect Dx ---
Subjective Subjective: Afebrile without complaints Objective Last 24 Hrs of Vital Signs/I&O Vital Signs Date Time Temp Pulse Resp B/P B/P Pulse O2 O2 Flow FiO2 Mean Ox Delivery Rate 06/27 0858 72 136/82 06/27 0603 97.0 64 20 120/60 98 Room Air 06/26 2204 96.6 74 20 102/70 98 06/26 1426 98.1 71 18 120/60 98 Room Air Intake & Output 06/27 1600 06/27 0800 06/27 0000 Intake Total 300 300 Output Total 30 0 Balance 270 300 Intake, Oral 300 300 Output, 30 0 Drainage Physical Exam Other Physical Findings: She appears comfortable in no acute distress Lungs are clear Heart regular rhythm with no murmur Back right flank catheter in place, with serosanguineous drainage; 30 cc output reported overnight but none over the previous 24 hours Results Last 24 Hours of Lab Results: Laboratory Tests 06/27 0635 Chemistry Sodium (137 - 145 mmol/L) 140 Potassium (3.5 - 5.1 mmol/L) 3.5 Chloride (98 - 107 mmol/L) 101 Carbon Dioxide (22 - 30 mmol/L) 30 Anion Gap (5 - 16) 8 BUN (7 - 17 mg/dL) 11 Creatinine (0.5 - 1.0 mg/dL) 0.6 Estimated GFR (>60 ml/min) > 60 BUN/Creatinine Ratio (7 - 25 %) 18.3 Total Bilirubin (0.2 - 1.3 mg/dL) 0.3 Direct Bilirubin (< 0.4 mg/dL) 0.3 AST (14 - 36 U/L) 61 H ALT (9 - 52 U/L) 59 H Alkaline Phosphatase (<127 U/L) 169 H Total Protein (6.3 - 8.2 g/dL) 5.9 L Albumin (3.5 - 5.0 g/dL) 2.8 L Hematology CBC w Diff NO MAN DIFF REQ WBC (4.8 - 10.8 /CUMM) 7.7 RBC (4.20 - 5.40 /CUMM) 3.54 L Hgb (12.0 - 16.0 G/DL) 10.1 L Hct (37 - 47 %) 31.0 L MCV (81.0 - 99.0 FL) 87.6 MCH (27.0 - 31.0 PG) 28.6 MCHC (33.0 - 37.0 G/DL) 32.7 L RDW (11.5 - 14.5 %) 13.4 Plt Count (130 - 400 /CUMM) 416 H MPV (7.4 - 10.4 FL) 8.7 Gran % (42.2 - 75.2 %) 75.4 H Lymphocytes % (20.5 - 51.1 %) 17.6 L Monocytes % (1.7 - 9.3 %) 4.5 Eosinophils % (0 - 5 %) 1.9 Basophils % (0.0 - 2.0 %) 0.6 Absolute Granulocytes (1.4 - 6.5 /CUMM) 5.8 Absolute Lymphocytes (1.2 - 3.4 /CUMM) 1.3 Absolute Monocytes (0.10 - 0.60 /CUMM) 0.3 Absolute Eosinophils (0.0 - 0.7 /CUMM) 0.1 Absolute Basophils (0.0 - 0.2 /CUMM) 0 Last 24 Hours of Henrique Results: Right flank abscess culture June 24 positive for Actinomyces viscosus Blood cultures 2 June 23 negative Assessment/Plan ID Impression: Stable, with temperatures remaining normal and white blood cell count also normal, now 3 days status post drainage by IR of a right flank abscess, which grew Actinomyces. The source of this infection remains unclear but still suspect a biliary process, with choledocholithiasis and elevated liver enzymes, which are decreasing. Her underlying history of cirrhosis and diabetes may place her at increased risk for infection due to Actinomyces. A laparoscopic assisted ERCP should still be considered, but she prefers that this be done by her own GI physician as an outpatient. She will require a prolonged course of antibiotics, typically 2-6 weeks of IV, followed by up to 6-12 months of oral. Though Actinomyces is typically sensitive to Penicillin would prefer to continue her on Unasyn to cover for possible anaerobic co-pathogens. Suggestion: 1. Repeat CT of the abdomen and pelvis with IV contrast once her drainage has decreased to 20 cc a day for several days 2. Would pursue laparoscopic-assisted ERCP as an outpatient 3. Would pursue placement of a PICC 4. Continue Unasyn to plan on a minimum of 2-6 weeks of IV antibiotics, followed by a prolonged oral regimen as noted above
[2017-06-27 13:53] VITALS: BP 138/60
--- NOTE | 2017-06-27 16:39 | RADIOLOGY REPORT ---
EXAMINATION: XR PORTABLE CHEST CLINICAL INFORMATION: Long-term antibiotics. PICC line. COMPARISON: Chest x-ray 06/23/2017 TECHNIQUE: Portable frontal view of the chest was obtained. 2:57 PM FINDINGS: PICC line catheter tip at caval atrial junction. No acute change. Lungs are clear. No pulmonary vascular congestion. The cardiac and mediastinal contours are normal. The heart size is normal. IMPRESSION: PICC line catheter in good position with the catheter tip at the caval atrial junction. No acute change of the chest.
--- NOTE | 2017-06-27 17:10 | PN- Gastroenterology ---
Assessment/Plan GI Assessment/Recommendations: 66 y/o female, with numerous comorbidities, including morbid obesity, AODM, HTN, HLD, DJD, left TKR, right rotator cuff repair, C6/C7 spine surgery, post TAHBSO for endometrial Ca in 1982 (w/o adjuvant tx), followed by Dr. Romano for primary care & Dr. Boateng for GI in [place], [place]. 03/25/11: Lap CCKY w/o IOC & intraop liver bx per Dr. Neri- chronic cholecystitis & cirrhosis with mild steatohepatitis. Fe stains negative. (The pathology report recommended further w/u to exclude other causes of chronic hepatitis, such as viral, autoimmune and/or drug-induced, if clinically indicated). 05/25/11: GJ bypass (LRYGB), per Dr. Neri. The patient apparently was referred to Dr. Boateng for GI by Dr. Neri, after the 03/25/11: liver bx showed cirrhosis. The patient claimed she had EGD x [address] Boateng, last done approximately 2014, neither of them with varices. She stated she had a "benign polyp" removed by Dr. Boateng at her last colonoscopy of 2012, & was "due for one this year". The patient also said the CBD stone is chronic & "has been there for years", per Dr. Boateng. She denied any blood transfxs, IVDA, significant EtOH, or tattoos, regarding her cirrhosis. There was no FHx GI Ca, GI disease, or inherited liver disease. The patient presented to the [facility] 06/23/17 at 2:24 p.m., BIBA from home, with 4 days of burning, stabbing pain above the right hip/right flank, which was hard and tender to touch. The pain was accompanied by some mild shortness of breath, which then improved & her O2 sats were stable on RA. She denied any fevers or chills. She may have fallen a short while [employer]UT[employer], but was not certain. She denied any prior history of kidney stones or gross hematuria. She claimed approximately 1 month ago, she had a bladder infection and her PMD gave her a 5 day course of an unknown antibiotic. Her symptoms subsided then, but one week later, she developed symptoms of sinusitis and a persistent cough. She was again rx antibiotics by her PMD, but did not take them that time, and her symptoms subsided one week later. She denied any dysuria at the time of admission. She denied any rashes. She claimed she had a remote history of diverticulitis. She denied any vaginal spotting or D/C. Her bowel movements were normal. She denied any diarrhea, constipation, obstipation, tenesmus, change in stool caliber, BRBPR, or melena. She denied any nausea, vomiting, GERD, odynophagia, dysphagia, or early satiety. She denied any jaundice, dark urine, light stools, or pruritus. She claimed she has gotten forgetful in the past, attributed to Ambien , but denied any acute confusion. She denied any hip trauma. Upon arrival, BP 162/79, P 98, R 22, T 98.2, O2 sat 2L 98%. He was given IV Unasyn, IVF, & MS in the ER. BC were obtained. *The patient had a drain placed in her right flank by IR, just prior to my 06/24: GI consult, after which, her pain had resolved. The drain was putting out light chocolate colored liquid, most c/w probable abscess (*await dictated report of IR procedure note). She was comfortable & thirsty. 12/09/15: PMD- alb 4.4, glob 3.2, TBil 0.6, alk phos 81, AST 45, ALT 47, *Hep Bs Ag- neg, *Hep C Ab IgG- neg. 06/23/17: 1450- Admission labs- WBC 11.7 (89S/2B/5L/4M), H/H 11.6/35.8, MCV 88.7 , RDW 13.5, PLT 484, glu 156, BUN/Cr 14/0.6, GFR > 60, Na 138, K 4.4, HCO3 22, AG 14, lactate 1.1, lipase 21, Ca 9.5, alb 3.3, glob 3.3, TBil 0.7, alk phos 252 , AST 72, ALT 75, CRP > 9.0 06/23/17: 2145- BUN/Cr 11/0.5, GFR > 60, Na 142, K 4.0, HCO3 24, AG 14, lipase 38, alb 3.4, glob 3.6, TBil 0.6, DBil 0.5, alk phos 256, AST 67, ALT 74 06/23/17: U/A- clear yellow, < 1.005, 7.0, 1-3 WBC, few bact, 15+ ket, 2.0 urobil, neg nitrite, tr esterase. 06/23/17: BC X 2- neg x 1 day. 06/24/17: *BF C&S- pending (*20 cc turbid fluid removed from right flank abscess ). 06/23/17: PTT 26 06/24/17: PT 14.6, INR 1.34. 06/23/17: EKG- NSR @ 89, nl axis, nl int, early transition, w/o ischemia. 06/23/17: CT ABD & PELVIS W IV CONTRAST- IMPRESSION: 1. Complex septated collection (20 x 5 x 10 cm), from right lobe of liver to right flank muscle, inferiorly to ribs, consistent with abscess along the right flank. 2. Status post cholecystectomy. Dilated IHD/EHD with CBD 1.6 cm. 5 mm calcified stone in the distal CBD. Atrophic pancreas. Normal spleen. 3. Status post gastric bypass. 4. Diverticulosis of the left colon. No acute change of the bowel. Normal AP. 5. Fat conatining umbilical hernia. 6. Minimal right pleural effusion. 7. ASHD A-I arteries, w/o aneurysm. 8. Uterus absent. 9. DJD T-L spine & hips B/L, R>L. This critical result was discussed with Savi Small on 06/23/2017, 5:00 PM and it was ascertained that the content and urgency of the report was understood at the time of direct communication. DICTATED BY: Nilesh Pagan MD DATE/TIME DICTATED:06/23/17 1648 06/23/17: XRY-CHEST XRAY, TWO VIEWS- No acute disease. No effusion. 06/24/17: US-GUIDANCE PROCEDURE NOTE: Informed consent was obtained from the patient prior to the procedure. During this process, the procedure and potential alternatives were explained along with the intended outcome and benefits. The risks of the procedure, including the possibility of an unsuccessful procedure, as well as the risk of not doing the procedure, were discussed. The patient was given the opportunity to ask questions regarding the procedure and appeared competent to make decisions. A signed consent form documenting this discussion was placed in the medical record. A time-out procedure was performed. TECHNIQUE: The patient was placed in the left side down decubitus position on the ultrasound table. A time-out was performed. The right abdomen was prepped and draped in the usual sterile fashion. 10 mL of 1% lidocaine was used to obtain local anesthesia of the skin and deeper tissues. A 22-gauge needle was advanced into the collection and fabrizio pus was aspirated. A 12 Albanian locking catheter was then advanced trocar style into the abscess under direct ultrasound guidance. The distal pigtail was formed. The catheter was secured to the skin with a single silk suture and a sterile dressing was placed over the site. The catheter was connected to gravity drainage bag. *80 mL of pus was aspirated and sent for the requested studies. The patient tolerated the procedure well. IMPRESSION: Successful ultrasound-guided abscess drainage. PLAN: 1. The patient was stable after the procedure and no complications were noted. 2. Drain to be flushed with 10 mL's normal saline twice daily. DICTATED BY: Stan Salas MD DATE/TIME DICTATED:06/24/17 1444 *As of 06/24/17, I felt that the patient's chronic CBD stone (apparently dates back years), was incidental in nature and may have nothing to do with the patient's right flank abscess. Clinically, she did not have cholangitis. I was not certain as to what the exact etiology of the right flank abscess was (? urologic, ? GI > biliary). There was a questionable history of trauma. The history of cirrhosis was noted, & most likely was from meatabolic syndrome X. The patient has numerous risk factors for steatohepatitis-> cirrhosis, including morbid obesity, HTN, AODM, HLD, etc. There was no significant hx EtOH, nor any significant FHx. Her current LFTs could be reactive in nature from adjacent liver inflammation, from the right flank abscess. She had nothing clinically, nor radiographically, to suggest recurrent diverticulitis. The fact that she had GJ bypass (LRYGB) makes ERCP technically difficult, & would require laparoscopic assisted ERCP. Her reducible umbilical hernia is incidental in nature. 06/23/17: BC x 2- remain neg 06/24/17: right flank abscess- many WBC, *many GP rods, with BF C&S- neg x 1 day. 06/25/17: WBC 8.3 (80% gran/7 gran Ab), H/H 10.5/31.4, PLT 490, PT 13.8, INR 1.2 , BUN/Cr 14/0.6, GFR > 60, Na 141, K 3.8, HCO3 27, AG 10, alb 3.1, glob 3.1, TBil 0.5, DBil 0.3, alk phos 192, AST 53, ALT 60 *As of 06/25/17, the patient remained hemodynamically stable & afebrile, with O2 sat RA 97%. Surgical & ID notes appreciated. I was verbally told by Dr. Mehta late on 06/24/17, that the Gram stain of the right flank abscess was growing gram-positive rods, suggestive of Clostridium, which would support a biliary or upper GI source for the infection (? if perforation of biliary tree at some point). She remained on IV Unasyn 3g Q6h. She was having some mild chronic headaches, which preceded her antibiotics. She did have some mild nausea without any significant vomiting, probably from the Unasyn, for which she was getting Zofran. She was on a regular diet & ambulated. She denied any fevers, chills, jaundice, CP, SOB, or abdominal pain. *She was rxd Ibuprofen, but would prefer to avoid NSAIDs in a cirrhotic. Her LFTs were slightly improved, as was her WBC. *The right flank drain had put out 310 cc on 06/24/17, down to 40 cc on 06/25/17, & the fluid was becoming less purulent. She had recieved 1 dose of empiric Vitamin K 10 mg sc x1 . 06/26/17: WBC 8.6, H/H 10.0/30.4, PLT 431, BUN/Cr 14/0.6, GFR > 60, Na 139, K 4.0, HCO3 29, AG 9, albumin 2.8, globulin 3.2, TBil 0.4, DBil 0.4, alk phos 168, AST 48, ALT 64 *As of 06/26/17, patient remained hemodynamically stable & afebrile on IV Unasyn 3g Q6h, with O2 sat RA 98%. The output of her right flank drain was decreasing & was less purulent (now serosanguineous). She denied any fevers, chills, confusion, jaundice, abdominal pain, CP, or SOB. She had mild nausea, attributed to the Unasyn, which was tolerable on Zofran, without any vomiting. She was tolerating a regular diet. She otherwise had no complaints, aside from her chronic neck pain x years. Her NSAIDS were D/C'd. *A definite organism from her 06/24/17: right flank drain had still not yet been identified (gram stain with many WBC/many GP rods). 06/23/17: BC x 2- remained neg. 06/23/17: BC x2- negative 06/24/17: Right flank C&S- *Actinomyces. 06/27/17: WBC 7.7 (75% gran), H/H 10.1/31, nl MCV, nl RDW, PLT 416, BUN/Cr 11/ 0.6, GFR > 60, Na 140, K 3.5, HCO3 30, AG 8, alb 2.8, glob 3.1, TBil 0.3, DBil 0.3, alk phos 169, AST 61, ALT 59 06/27/17: XRY-PORTABLE CHEST XRAY- PICC line catheter in good position with the catheter tip at the caval atrial junction. No acute change of the chest. *As of 06/27/17, the pt remained hemodynamically stable & afebrile, on Unasyn 3g IVPB Q6h. The Actinomyces growing from the right flank aspirate was d/w Dr. Mehta. Apparently, this is a more common pelvic or mandibular pathogen, & not typical for biliary. In view of the above, a PICC line was placed by IR on 06/27/17, via right antecubital fossa. Please note, the pt is somewhat immunocompromised, as she is a cirrhotic & DM. As per Dr. Mehta's discussion with Dr. Mendosa, of IR, a repeat CT AP with IV contrast should not be done to recheck the abscess ( assuming she remains clinically stable) until the right flank catheter drainage has decreased to 20 cc/day x sveral days. Per d/w Dr. Mehta, IV abx (Unasyn) should be continued for a minimum of 2-6 weeks, perhaps followed by a prolonged course of po abx (although the pt had nothing clinically to suggest osteomyelitis as a source). She otherwise felt well, and was tolerating a regular diet. Her nausea had improved. She had no fevers, chills, vomiting, abdominal pain, or jaundice. 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 Her right flank drainage tube put out approximately 35 cc of serosanguineous fluid so far today, which was no longer purulent. *SUGGEST- Regular diet as tolerated. IV Unasyn 3g IVPB Q6h, to be continued via PICC line as outpt x 2-6 weeks, per ID, possibly to be followed by a prolonged po course of abx, for Actinomyces. Check urine C&S. Follow-up with ID. *Zofran as needed. If not obtained at Dr. Boateng, consideration for semi-electively checking full Hep A, B, & C serologies, HIV, Fe, TIBC, ferritin, DELILAH, AMA, & A1AT. Serial LFTs. DVT prophylaxis. *Duration of right flank drainage tube will be dependent on output, clinical course, & eventual follow-up imaging studies, to be coordinated by surgery, ID, & IR. *Per Dr. Mehta's discussion with Dr. Mendosa, of IR, assuming the pt remains clinically stable, would defer repeat CT AP with IV contrast until the right flank drainage tube output is < 20 cc/day x several days. *Assuming the patient remains stable, for probable D/C to home tomorrow with PICC line & right flank drainage tube intact. Eventual outpt follow-up with surgery & ID, to coordinate the above. Once the right flank drainage subsides, the pt will need outpt coordinated lap assisted ERCP, which will require temporarilly creating a gastric port, in order to proceed. I do not perform interventional ERCP. The patient seems to want this done with her prior GI MDs in [place]. If they do not perform this, Dr. Oscar will try to coordinate this here as an outpt, with Dr. Cheikh Flores. The case was again discussed with the patient, her , Nilesh, her son, Johnny (& previously with her daughter Soraya). I again spoke with Dr. Oscar, Dr. Cheikh Flores, & Dr. Mehta. As an aside, the patient is apparently due for f/u surveillance colonoscopy later in [address] Boateng, regarding her hx colon polyps. (EGD there have reportedly been negative for varices). Will defer to Dr. Boateng, regarding hepatoma surveillance, with AFP/RUQ sono Q 6 months, vaccinations, etc. Avoid hepatotoxins, avoid NSAIDs, & keep Tylenol use to a minimum. The patient was given our office number. *Further inpt GI follow- up as needed. Problem List: 1. Abscess of flank 2. Common bile duct stone 3. Cirrhosis 4. Abnormal LFTs 5. Aram-en-Y gastrojejunostomy 6. Diverticula of colon 7. Umbilical hernia without obstruction and without gangrene 8. History of colon polyps Subjective Subjective: 06/23/17: BC x2- negative 06/24/17: Right flank C&S- *Actinomyces 06/27/17: WBC 7.7 (75% gran), H/H 10.1/31, nl MCV, nl RDW, PLT 416, BUN/Cr 11/ 0.6, GFR > 60, Na 140, K 3.5, HCO3 30, AG 8, alb 2.8, glob 3.1, TBil 0.3, DBil 0.3, alk phos 169, AST 61, ALT 59 06/27/17: XRY-PORTABLE CHEST XRAY- PICC line catheter in good position with the catheter tip at the caval atrial junction. No acute change of the chest. *As of 06/27/17, the pt remained hemodynamically stable & afebrile, on Unasyn 3g IVPB Q6h. The Actinomyces growing from the right flank aspirate was d/w Dr. Mehta. Apparently, this is a more common pelvic or mandibular pathogen & not typical for biliary. In view of the above, a PICC line was placed by IR on 06/27/17, via right antecubital fossa. Please note, the pt is somewhat immunocompromised, as she is a cirrhotic & DM. As per Dr. Mehta's discussion with Dr. Mendosa, of IR, a repeat CT AP with IV contrast should not be done to recheck the abscess ( assuming she remains clinically stable) until the right flank catheter drainage has decreased to 20 cc/day x sveral days. Per d/w Dr. Mehta, IV abx (Unasyn) should be continued for a minimum of 2-6 weeks, perhaps followed by a prolonged course of po abx (although the pt had nothing clinically to suggest osteomyelitis as a source). She otherwise felt well, and was tolerating a regular diet. Her nausea had improved. She had no fevers, chills, vomiting, abdominal pain, or jaundice. 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 Her right flank drainage tube put out approximately 35 cc of serosanguineous fluid so far today, which was no longer purulent. Review of Systems: Full 14 point review of systems otherwise noncontributory, and as above. Review of Systems Constitutional: Denies: chills, diaphoresis, fever, malaise, weakness, unexplained weight loss. EENTM: Denies: blurred vision, double vision, visual changes, eye pain, eye drainage, eye tearing, icterus, ear discharge, ear pain, ear redness, hearing changes, nasal congestion, epistaxis, nasal pain, throat pain, throat swelling, mouth pain, tooth pain. Cardiovascular: Denies: chest pain, edema, orthopena, palpitations, peripheral edema, syncope. Respiratory: Denies: cough, hemoptysis, orthopnea, short of breath, sputum production, stridor, wheezing. GI: Reports: mild nausea-> improving (? due to abx). Denies: abdominal pain (right flank- *resolved post drainage tube), bloating, constipation, diarrhea, distention, bowel incontinence, melena, nausea, bloody stool, changes in stool, vomiting, steatorrhea. Genitourinary: Denies: discharge, dysuria, frequency, hematuria, hesitation, nocturia, pain, urgency. Musculoskeletal: Reports:chronic neck pain (post C6/C7 surgery). Denies: back pain, gout, joint pain, joint swelling, muscle pain, muscle stiffness. Skin: Denies: cysts, change in skin color, change in hair/nails, dryness, erythema, jaundice, lesions, lymphangitis, lumps, moles, rash. Neurological/Psychological: Denies: anxiety, ataxia, cognitive dysfunction, confusion, depressed, dementia, emotional problems, headache, numbness, paresthesia, pre-existing deficit, petit mal seizures, tingling, tremors, tonic-clonic seizures, unable to move lower ext , unable to move upper ext, weakness. Hematologic/Endocrine: Denies: bruising, bleeding, polyuria, polydipsia. Immunologic/Allergic: Denies: splenectomy, HIV/AIDS, lymphadenopathy. All Other Systems: Reviewed and Negative Objective Vital Signs and I&Os Vital Signs Date Time Temp Pulse Resp B/P B/P Pulse O2 O2 Flow FiO2 Mean Ox Delivery Rate 06/27 1353 98.3 100 18 138/60 98 Room Air 06/27 0858 72 136/82 06/27 0603 97.0 64 20 120/60 98 Room Air 06/26 2204 96.6 74 20 102/70 98 Intake & Output 06/27 1600 06/27 0400 06/26 0400 06/25 1600 06/25 0400 Intake Total 835 281 2499 550 1150 120 Output Total 30 0 400 105 440 310 Balance 270 300 960 445 710 -190 Intake, IV 200 150 250 20 Intake, Oral 230 148 8592 400 900 100 Output, 30 0 105 40 310 Drainage Output, Urine 400 400 Patient 221 lb Weight Physical Exam: Well-developed, well-nourished, pleasant, morbidly obese female, in no apparent distress. Sclera anicteric. Conjunctiva pink. Oropharynx clear. No oral thrush. No aphthous ulcers. There is no adenopathy, thyromegaly, or JVD. Post C- spine scar. No peripheral stigmata of inflammatory bowel disease or chronic liver disease on exam. No spiders on the anterior chest wall. No CVA tenderness. Breast & pelvic exams: API. Lungs: clear to A&P, with slight decreased BS at the right base. No wheezing, rales, or rhonchi. Heart exam: regular rate rhythm, S1 and S2, without any significant murmur. Abdominal exam: normal bowel sounds, soft obese belly, nontender (*since right flank drainage tube placed by IR), without guarding or rebound. Reducible small umbillical hernia. Otherwise, no mass. No organomegaly. No fluid shift. No pulsatile mass. Digital rectal exam: deferred by patient. Extremities: without cyanosis or clubbing. Trace pedal edema B/L. Mod DJD. No rash. No palpable cords. *PICC line site in right antecubital fossa, clean w/o pus. (*Right hip previously FROM & NT with int/ext rotation, regarding right flank abscess). No palmar erythema. No Dupuytren's contractures. Distal pulses 2+ bilaterally. DTRs 2+ bilaterally. Alert and oriented x 3. No tremor. No asterixis. A detailed exam for peripheral neuropathy was deferred. Current Medications: Current Medications Sig/Gunner Start time Last Medication Dose Route Stop Time Status Admin Ampicillin Sodium/ 3,000 MG Q6 06/23 2359 AC 06/27 Sulbactam Sodium IV 1249 Sodium Chloride 100 ML Gabapentin 400 MG Q8 06/23 2330 AC 06/25 PO 0554 Heparin Sodium 5,000 UNIT Q8 06/23 2200 DC 06/27 (Porcine) SC 0506 Lactobacillus 1 CAP BID 06/24 2100 AC 06/27 Acidophilus PO 0852 Lisinopril 10 MG DAILY 06/24 0900 AC 06/27 PO 0858 Ondansetron HCl 4 MG Q6 06/26 0015 DC 06/26 IV 06/26 1801 1715 Oxycodone HCl 5 MG Q6 PRN 06/25 1130 AC 06/26 PO 2312 Oxycodone HCl 2.5 MG Q6 PRN 06/25 1115 AC PO Pantoprazole Sodium 40 MG Q12 06/23 2100 AC 06/27 IV 0852 Patient Medication 1 ED ONE ONE 06/27 1500 DC Teaching ED 06/27 1501 Promethazine HCl 25 MG Q4P PRN 06/27 0745 AC 06/27 IV 07/04 0744 0805 Results Pertinent Lab Results: Laboratory Tests 06/27 06/26 0635 0650 Chemistry Sodium (137 - 145 mmol/L) 140 139 Potassium (3.5 - 5.1 mmol/L) 3.5 4.0 Chloride (98 - 107 mmol/L) 101 102 Carbon Dioxide (22 - 30 mmol/L) 30 29 Anion Gap (5 - 16) 8 9 BUN (7 - 17 mg/dL) 11 14 Creatinine (0.5 - 1.0 mg/dL) 0.6 0.6 Estimated GFR (>60 ml/min) > 60 > 60 BUN/Creatinine Ratio (7 - 25 %) 18.3 23.3 Total Bilirubin (0.2 - 1.3 mg/dL) 0.3 0.4 Direct Bilirubin (< 0.4 mg/dL) 0.3 0.4 AST (14 - 36 U/L) 61 H 48 H ALT (9 - 52 U/L) 59 H 64 H Alkaline Phosphatase (<127 U/L) 169 H 168 H Total Protein (6.3 - 8.2 g/dL) 5.9 L 6.0 L Albumin (3.5 - 5.0 g/dL) 2.8 L 2.8 L Hematology CBC w Diff NO MAN DIFF REQ NO MAN DIFF REQ WBC (4.8 - 10.8 /CUMM) 7.7 8.6 RBC (4.20 - 5.40 /CUMM) 3.54 L 3.46 L Hgb (12.0 - 16.0 G/DL) 10.1 L 10.0 L Hct (37 - 47 %) 31.0 L 30.4 L MCV (81.0 - 99.0 FL) 87.6 87.8 MCH (27.0 - 31.0 PG) 28.6 29.0 MCHC (33.0 - 37.0 G/DL) 32.7 L 33.0 RDW (11.5 - 14.5 %) 13.4 13.4 Plt Count (130 - 400 /CUMM) 416 H 431 H MPV (7.4 - 10.4 FL) 8.7 8.6 Gran % (42.2 - 75.2 %) 75.4 H 79.0 H Lymphocytes % (20.5 - 51.1 %) 17.6 L 14.2 L Monocytes % (1.7 - 9.3 %) 4.5 4.7 Eosinophils % (0 - 5 %) 1.9 1.8 Basophils % (0.0 - 2.0 %) 0.6 0.3 Absolute Granulocytes (1.4 - 6.5 /CUMM) 5.8 6.8 H Absolute Lymphocytes (1.2 - 3.4 /CUMM) 1.3 1.2 Absolute Monocytes (0.10 - 0.60 /CUMM) 0.3 0.4 Absolute Eosinophils (0.0 - 0.7 /CUMM) 0.1 0.2 Absolute Basophils (0.0 - 0.2 /CUMM) 0 0 06/25 06/25 1735 0640 Chemistry Sodium (137 - 145 mmol/L) 141 Potassium (3.5 - 5.1 mmol/L) 3.8 Chloride (98 - 107 mmol/L) 104 Carbon Dioxide (22 - 30 mmol/L) 27 Anion Gap (5 - 16) 10 BUN (7 - 17 mg/dL) 14 Creatinine (0.5 - 1.0 mg/dL) 0.6 Estimated GFR (>60 ml/min) > 60 BUN/Creatinine Ratio (7 - 25 %) 23.3 Total Bilirubin (0.2 - 1.3 mg/dL) 0.5 Direct Bilirubin (< 0.4 mg/dL) 0.3 AST (14 - 36 U/L) 53 H ALT (9 - 52 U/L) 60 H Alkaline Phosphatase (<127 U/L) 192 H Total Protein (6.3 - 8.2 g/dL) 6.2 L Albumin (3.5 - 5.0 g/dL) 3.1 L Coagulation PT (9.4 - 12.5 SEC) 13.8 H INR (0.90 - 1.19) 1.26 H Hematology CBC w Diff NO MAN DIFF REQ WBC (4.8 - 10.8 /CUMM) 8.3 RBC (4.20 - 5.40 /CUMM) 3.61 L Hgb (12.0 - 16.0 G/DL) 10.5 L Hct (37 - 47 %) 31.4 L MCV (81.0 - 99.0 FL) 87.0 MCH (27.0 - 31.0 PG) 29.1 MCHC (33.0 - 37.0 G/DL) 33.5 RDW (11.5 - 14.5 %) 13.1 Plt Count (130 - 400 /CUMM) 490 H MPV (7.4 - 10.4 FL) 7.6 Gran % (42.2 - 75.2 %) 80.2 H Lymphocytes % (20.5 - 51.1 %) 15.2 L Monocytes % (1.7 - 9.3 %) 3.6 Eosinophils % (0 - 5 %) 0.8 Basophils % (0.0 - 2.0 %) 0.2 Absolute Granulocytes (1.4 - 6.5 /CUMM) 6.7 H Absolute Lymphocytes (1.2 - 3.4 /CUMM) 1.3 Absolute Monocytes (0.10 - 0.60 /CUMM) 0.3 Absolute Eosinophils (0.0 - 0.7 /CUMM) 0.1 Absolute Basophils (0.0 - 0.2 /CUMM) 0 Imaging/Other Studies: 06/23/17: EKG- NSR @ 89, nl axis, nl int, early transition, w/o ischemia. 06/23/17: CT ABD & PELVIS W IV CONTRAST- IMPRESSION: 1. Complex septated collection (20 x 5 x 10 cm), from right lobe of liver to right flank muscle, inferiorly to ribs, consistent with abscess along the right flank. 2. Status post cholecystectomy. Dilated IHD/EHD with CBD 1.6 cm. 5 mm calcified stone in the distal CBD. Atrophic pancreas. Normal spleen. 3. Status post gastric bypass. 4. Diverticulosis of the left colon. No acute change of the bowel. Normal AP. 5. Fat conatining umbilical hernia. 6. Minimal right pleural effusion. 7. ASHD A-I arteries, w/o aneurysm. 8. Uterus absent. 9. DJD T-L spine & hips B/L, R>L. This critical result was discussed with Savi Small on 06/23/2017, 5:00 PM and it was ascertained that the content and urgency of the report was understood at the time of direct communication. DICTATED BY: Nilesh Pagan MD DATE/TIME DICTATED:06/23/17 1648 06/23/17: XRY-CHEST XRAY, TWO VIEWS- No acute disease. No effusion. 06/24/17: US-GUIDANCE PROCEDURE NOTE: Informed consent was obtained from the patient prior to the procedure. During this process, the procedure and potential alternatives were explained along with the intended outcome and benefits. The risks of the procedure, including the possibility of an unsuccessful procedure, as well as the risk of not doing the procedure, were discussed. The patient was given the opportunity to ask questions regarding the procedure and appeared competent to make decisions. A signed consent form documenting this discussion was placed in the medical record. A time-out procedure was performed. TECHNIQUE: The patient was placed in the left side down decubitus position on the ultrasound table. A time-out was performed. The right abdomen was prepped and draped in the usual sterile fashion. 10 mL of 1% lidocaine was used to obtain local anesthesia of the skin and deeper tissues. A 22-gauge needle was advanced into the collection and fabrizio pus was aspirated. A 12 Albanian locking catheter was then advanced trocar style into the abscess under direct ultrasound guidance. The distal pigtail was formed. The catheter was secured to the skin with a single silk suture and a sterile dressing was placed over the site. The catheter was connected to gravity drainage bag. *80 mL of pus was aspirated and sent for the requested studies. The patient tolerated the procedure well. IMPRESSION: Successful ultrasound-guided abscess drainage. PLAN: 1. The patient was stable after the procedure and no complications were noted. 2. Drain to be flushed with 10 mL's normal saline twice daily. DICTATED BY: Stan Salas MD DATE/TIME DICTATED:06/24/17 / 1444 06/27/17: XRY-PORTABLE CHEST XRAY- PICC line catheter in good position with the catheter tip at the caval atrial junction. No acute change of the chest.
[2017-06-27 23:11] VITALS: BP 140/78
[2017-06-28 06:20] VITALS: BP 118/70
--- NOTE | 2017-06-28 09:03 | PN- General Surgery ---
Surgical Brief Attending Note Brief Attending Note: Patient seen and examined, doing well. No issues. AVSS UO ok Drain 40cc/24 hrs (mostly serosanguinous) Abd-soft Labs ok -D/C plannin with drain -Repeat CT in 1 week -Abx as per ID recs
[2017-06-28] MEDS ORDERED: UNASYN 3 GM VIAL3 GM IV (09:21)
--- NOTE | 2017-06-28 09:26 | Patient Discharge Instructions ---
Discharge Instructions General Discharge Information You were seen/treated for: FLANK ABSCESS You had these procedures: PERCUTANEOUS DRAINAGE OF ABSCESS PLACEMENT OF PICC LINE Watch for these problems: FEVER OVER 100.4 INCREASED FLANK PAIN NAUSEA/VOMITING CHEST PAIN/SHORTNESS OF BREATH Call Surgeon to remove: POSSIBLE DRAIN REMOVAL No bath, but you may shower: Yes Other wound care: KEET DRAIN SITE CLEAN AND DRY Diet Continue normal diet: Yes Activity Activity Self Limited: Yes Acute Coronary Syndrome Inclusion Criteria At DC or during hospital stay patient has or had the following: ACS DIAGNOSIS No Discharge Core Measures Meds if any: Prescribed or Continued at Discharge Meds if any: NOT Prescribed or Continued at Discharge Congestive Heart Failure Inclusion Criteria At DC or during hospital stay patient has or had the following: CHF DIAGNOSIS No Discharge Core Measures Meds if any: Prescribed or Continued at Discharge Meds if any: NOT Prescribed or Continued at Discharge Cerebrovascular accident Inclusion Criteria At DC or during hospital stay patient has or had the following: CVA/TIA Diagnosis No Discharge Core Measures Meds if any: Prescribed or Continued at Discharge Meds if any: NOT Prescribed or Continued at Discharge Venous thromboembolism Inclusion Criteria VTE Diagnosis No VTE Type NONE VTE Confirmed by (Test) NONE Discharge Core Measures - Per Current guidelines, there needs to be overlap - treatment for the first 5 days of Warfarin therapy. - If discharged on Warfarin prior to 5 days of - overlap therapy, the patient will need to be - assessed for post discharge needs including - *Post discharge parental anticoagulation - *Warfarin and/or parental anticoagulation education - *Follow up date to check INR post discharge At least 5 days overlap therapy as Inpatient No Meds if any: Prescribed or Continued at Discharge Note: Overlap Therapy is Warfarin and Anticoagulant Meds if any: NOT Prescribed or Continued at Discharge
--- NOTE | 2017-06-28 09:34 | Surgical Discharge Summary ---
Visit Information Visit Dates Admission Date: 06/23/17 Discharge Date: 06/28/17 History of Present Illness Chief Complaint: RIGHT FLANK PAIN Medical History Blood Transfusion Hx: No Neurological: residual from C spine surgery EENT: NONE Cardiovascular: hypertension, hyperlipidemia Respiratory: NONE Hepatic: cholelithiasis, cirrhosis Renal: NONE Musculoskeletal: osteoarthritis Psychiatric: NONE Endocrine: diabetes (AODM- ? 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 FATHER, , Age 63; Cause: Unknown cause of morbidity or mortality. Psychosocial History Where Do You Live? Home Who Do You Live With? Spouse Services at Home: None What is Your Primary Language? Turkish ETOH Use: denies use (rare wine), occasional use Other Addictive Behavior: . Lives with Nilesh. 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 Review of Systems: PER [facility] Hospital Course Course Attending Physician: Darrick Oscar DO Primary Care Physician: Patient Has No Primary Care Dr [facility] Course: PT PRESENTED TO [facility] ON 06/23/17 WITH COMPLAINTS OF RIGHT SIDED FLANK PAIN. SHE WAS FOUND TO HAVE A RIGHT FLANK ABSCESS WHICH WAS PERCUTANEOUSLY DRAINED BY IR ON 06/24 WITH THE DRAIN LEFT IN PLACE. CULTURES OF THE ABSCESS GREW ACTINOMYCES. INFECTIOUS DISEASE RECOMMENDED IV UNASYN. A PICC LINE WAS PLACED ON 06/27 FOR PROLONGED IV ANTIBIOTICS. HER PAIN WAS CONTROLLED, SHE WAS TOLERATING HER DIET, A FEBRILE, VOIDING, HAVING BOWEL MOVEMENTS. ON 06/28 SHE WAS DISCHARGED TO HOME WITH HOME [facility] TO HELP WITH INSTRUCTIONS FOR HOME IV ANTIBIOTICS. SHE WAS GIVEN INSTRUCTIONS TO FOLLOW-UP WITH DR GUILLAUME IN 1-2 WEEKS. SHE WILL HAVE A REPEAT CT AN OUTPATIENT IN ABOUT 1 WEEK. DISCHARGE INSTRUCTIONS WERE REVIEWED WITH THE PATIENT AND HER Allergies: Coded Allergies: NO KNOWN ALLERGIES (12/08/15) Significant Procedures: IR PREC DRAINAGE OF R FLANK ABSCESS PICC LINE IN RIGHT ARM Pertinent Lab Results: R FLANK ABSCESS CULTURES GREW ACTINOMYCES Disposition Summary Disposition Principal Diagnosis: R FLANK ABSCESS Additional Diagnosis: SP IR DRAINAGE OF ABSCESS Discharge Disposition: home health services Discharge Instructions General Discharge Information Code Status: Full Code Patient's Diet: REGULAR Patient's Activity: TOLERATES Follow-Up Instructions/Appts: FU WITH DR OSCAR IN 10 DAYS Medications at Discharge Discharge Medications: Continue taking these medications: Multivitamin (Daily Multiple Vitamin) 1 EACH TABLET 1 Tablet ORAL DAILY Biotin (Biotin) 5,000 MCG TAB.SUBL 1 Tablet ORAL DAILY Vitamin A Palmitate (Vitamin A) 10,000 UNIT CAPSULE 1 Capsule ORAL DAILY Lactobacillus Combo No.10 (Probiotic) 20 BILLION CELL CAPSULE 1 Capsule ORAL DAILY Cholecalciferol (Vitamin D3) (Vitamin D3) 10,000 UNIT TABLET 1 Tablet ORAL DAILY Cyanocobalamin (Vitamin B-12) (Vitamin B-12) 1,000 MCG TAB.SUBL 1 Tablet ORAL DAILY Lisinopril (Lisinopril) 10 MG TABLET 1 Tablet ORAL DAILY Zolpidem Tartrate (Zolpidem Tartrate) 10 MG TABLET 1 Tablet ORAL Every night Gabapentin (Gabapentin) 400 MG CAPSULE 1 Capsule ORAL THREE TIMES DAILY Start taking the following new medications: Ampicillin Sodium/Sulbactam Na (Unasyn 3 Gm Vial) 3 GRAM VIAL 3,000 Milligram INTRAVEN EVERY SIX HOURS Qty = 112 No Refills Instructions: TO BE GIVEN THROUGH PICC LINE
[2017-06-28 09:38] VITALS: BP 118/70
--- NOTE | 2017-06-28 10:58 | PN- Infect Dx ---
Subjective Subjective: Afebrile without complaints Objective Last 24 Hrs of Vital Signs/I&O Vital Signs Date Time Temp Pulse Resp B/P B/P Pulse O2 O2 Flow FiO2 Mean Ox Delivery Rate 06/28 0938 90 118/70 06/28 0620 98.5 91 18 118/70 97 Room Air 06/28 0000 Room Air 06/27 2311 97.9 76 18 140/78 99 Room Air 06/27 1353 98.3 100 18 138/60 98 Room Air Intake & Output 06/28 1600 06/28 0800 06/28 0000 Intake Total 300 Output Total 410 Balance -110 Intake, Oral 300 Output, 10 Drainage Output, Urine 400 Physical Exam Other Physical Findings: She appears comfortable in no acute distress Back right flank pigtail catheter in place, with 40 cc output of serosanguineous fluid yesterday; no tenderness on palpation Extremities PICC in the right upper extremity in place Results Last 24 Hours of Lab Results: No labs from today Last 24 Hours of Henrique Results: Blood cultures June 23 negative Assessment/Plan ID Impression: Stable, with temperatures and white blood cell count normal, now 4 days status post drainage by IR of a 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 The source of this infection remains unclear but still suspect a biliary process, with choledocholithiasis and elevated liver enzymes. Her underlying history of cirrhosis and diabetes may place her at increased risk for infection due to Actinomyces. A laparoscopic assisted ERCP is to be scheduled as an outpatient and may help in identifying the etiology of this process. She will require a prolonged course of antibiotics, typically 2-6 weeks of IV, followed by possibly up to 6-12 months of oral but this will need to be reevaluated as an outpatient. Suggestion: 1. Repeat CT of the abdomen and pelvis once her drainage has decreased to 20 cc today for several days 2. Follow-up liver enzymes as an outpatient 3. Await laparoscopic associated ERCP as an outpatient 4. Continue Unasyn to plan on a minimum of 2 weeks of IV antibiotics (until July 08), followed by a prolonged course of oral antibiotics, but this will need to be reevaluated based on the results of the follow-up CT scan.
== END 2017-06-28 14:15 | disposition home health service (06) | DRG 603 ==
LOC: ERH 14:24 → 2NA 20:00 → ERHI 20:00 → ENRESERV 20:32 → ENTRNSPT 21:48 → 2NA 22:19 → CMPTRNSPT 22:21 → ENPENDDIS 06-28 09:23 → 2NA 06-28 14:15
PROVIDERS: Nurse Practitioner; Physician Assistant; Physician Assistant Surgical
PROC: 0W9F30Z Drainage of Abdominal Wall with Drainage Device, Percutaneous Approach (ICD-10-PCS; 2017-06-24)
PROC: 02HV33Z Insertion of Infusion Device into Superior Vena Cava, Percutaneous Approach (ICD-10-PCS; principal; 2017-06-27)
DX: L02.211 Cutaneous abscess of abdominal wall (principal); E66.01 Morbid (severe) obesity due to excess calories; B96.89 Other specified bacterial agents as the cause of diseases classified elsewhere; E78.5 Hyperlipidemia, unspecified; I10 Essential (primary) hypertension; K80.20 Calculus of gallbladder without cholecystitis without obstruction; Z98.84 Bariatric surgery status; Z85.42 Personal history of malignant neoplasm of other parts of uterus; Z90.49 Acquired absence of other specified parts of digestive tract; Z90.710 Acquired absence of both cervix and uterus; Z96.652 Presence of left artificial knee joint; E66.9 Obesity, unspecified; Z98.1 Arthrodesis status; K57.90 Diverticulosis of intestine, part unspecified, without perforation or abscess without bleeding; K42.9 Umbilical hernia without obstruction or gangrene; R79.89 Other specified abnormal findings of blood chemistry
CPT/HCPCS: 2NASP; 87075; 36415; 36592; 71045; 71046; 74177; 81001; 82436; 87040; 93005; 93010; 96374; 96375; C1769; J0131; J1644; J1885; J2001; J2405; J2550; J7042